=== PATIENT | male | born 1950 | race Caucasian/White ===

== ENCOUNTER 2020-09-29 07:51 | Outpatient (REF) | payer MEDICARE, MEDICAID, SELFPAY ==
[2020-09-29 11:24] LABS: MANUAL DIFF FLAG NO
[2020-09-29 11:32] LABS: Basophils Absolute Auto 0.1 X10*3/uL (0.0-0.2); Eosinophils Absolute Auto 0.1 X10*3/uL (0.0-0.4); Eosinophils Percent Auto 2.1 % (0-4); Hematocrit 42.5 % (42-52); Hemoglobin 14.3 g/dl (14.0-18.0); Imm Gran Abs Auto 0.01 X10*3/uL (0.00-0.03); Imm Gran Pct Auto 0.2 % (0.0-0.4); Lymphocytes Absolute Auto 1.2 X10*3/uL (1.2-4.9); Lymphocytes Percent Auto 23.1 % (20-40); Mean Corpuscular HGB Conc 33.6 g/dl (31.0-36.0); Mean Corpuscular Hemoglobin 31.4 pg (27.0-33.0); Mean Corpuscular Volume 93.2 fL (80-98); Mean Platelet Volume 10.3 fL (9.4-12.4); Monocytes Absolute Auto 0.4 X10*3/uL (0.1-1.2); Monocytes Percent Auto 7.7 % (2-11); Neutrophils Absolute Auto 3.4 X10*3/uL (2.0-8.3); Neutrophils Percent Auto 65.9 % (45-73); Platelet Count 226 X10*3/uL (160-400); Red Blood Count 4.56 X10*6/uL (4.60-5.80); Red Cell Distribution Width 12.5 % (11.0-16.0); White Blood Count 5.2 X10*3/uL (4.8-10.8)
[2020-09-29 11:50] LABS: Alanine Aminotransferase 22 U/L (0-40); Albumin Level 4.1 g/dL (3.5-5.0); Alkaline Phosphatase 40 U/L (39-117); Anion Gap 15 (12-20); Aspartate Amino Transferase 26 U/L (5-37); Bilirubin Total 0.7 mg/dL (0.0-1.0); Blood Urea Nitrogen 16 mg/dL (9-16); Calcium 9.2 mg/dL (8.4-10.2); Carbon Dioxide 24 mmol/L (22-29); Chloride 105 mmol/L (96-108); Cholesterol 143 mg/dL; Estimated Glomerular Filt Rate 59; Glucose Fasting 92 mg/dL (60-99); HDL Cholesterol 40 mg/dL; LDL Cholesterol Calculated 87 mg/dl; Potassium 3.8 mmol/l (3.3-5.1); Sodium 140 mmol/L (135-145); Total Protein 7.1 g/dL (6.5-8.0); Triglycerides 84 mg/dL
[2020-09-29 11:57] LABS: Free T4 (Free Thyroxine) 1.27 ng/dL (0.71-1.85); PSA,Total (Free>4and<10) 0.63 ng/mL (0.00-4.00); Thyroid Stimulating Hormone 0.44 uIU/mL (0.32-4.0); Vitamin D 25-OH Total 41.5 ng/mL (>30)
== END 2020-09-29 07:52 | disposition home or self-care (01) ==
LOC: HO.HMGCLDS 07:51
PROVIDERS: PCP Internal Medicine; Visit Provider Internal Medicine
DX: E03.9 Hypothyroidism, unspecified (principal); E55.9 Vitamin D deficiency, unspecified; F42.9 Obsessive-compulsive disorder, unspecified; N40.0 Benign prostatic hyperplasia without lower urinary tract symptoms; K21.9 Gastro-esophageal reflux disease without esophagitis; F41.9 Anxiety disorder, unspecified; Q99.2 Fragile X chromosome; E78.00 Pure hypercholesterolemia, unspecified
CPT/HCPCS: 36415; 80053; 80061; 82306; 84153; 84439; 84443; 85025

== ENCOUNTER 2020-12-23 07:37 | Outpatient (REF) | payer MEDICARE, MEDICAID, SELFPAY ==
[2020-12-23 11:57] LABS: Alanine Aminotransferase 24 U/L (0-40); Anion Gap 11 (12-20); Aspartate Amino Transferase 25 U/L (5-37); Blood Urea Nitrogen 16 mg/dL (9-16); Calcium 9.1 mg/dL (8.4-10.2); Carbon Dioxide 28 mmol/L (22-29); Chloride 107 mmol/L (96-108); Cholesterol 143 mg/dL; Estimated Glomerular Filt Rate 57; Glucose Fasting 88 mg/dL (60-99); HDL Cholesterol 38 mg/dL; LDL Cholesterol Calculated 91 mg/dl; Potassium 4.1 mmol/L (3.3-5.1); Sodium 142 mmol/L (135-145); Triglycerides 73 mg/dL
[2020-12-23 12:25] LABS: Free T4 (Free Thyroxine) 1.03 ng/dL (0.71-1.85); Thyroid Stimulating Hormone 0.41 uIU/mL (0.32-4.0); Vitamin D 25-OH Total 44.2 ng/mL (>30)
[2020-12-24 08:51] LABS: Varicella IgG Antibody >4000.00 index
[2020-12-25 21:52] LABS: TS Negative Control Passed; TS Panel A 0; TS Panel B 0; TS Positive Control Passed; TSpotTB Negative (SeeBelow)
== END 2020-12-23 07:38 | disposition home or self-care (01) ==
LOC: HO.HMGCLDS 07:37
PROVIDERS: PCP Internal Medicine; Visit Provider Internal Medicine
DX: Z00.01 Encounter for general adult medical examination with abnormal findings (principal); Z11.1 Encounter for screening for respiratory tuberculosis; Z01.84 Encounter for antibody response examination; E78.00 Pure hypercholesterolemia, unspecified; E03.9 Hypothyroidism, unspecified; E55.9 Vitamin D deficiency, unspecified; I10 Essential (primary) hypertension
CPT/HCPCS: 36415; 80048; 80061; 82306; 84439; 84443; 84450; 84460; 86481; 86787

== ENCOUNTER 2020-12-31 10:39 | Outpatient (REF) | payer MEDICARE, MEDICAID, SELFPAY | END 2020-12-31 10:40 | disposition home or self-care (01) | LOC: HO.MAMMO 10:39 | PROVIDERS: Visit Provider Internal Medicine | DX: Z13.89 Encounter for screening for other disorder (principal) ==

== ENCOUNTER 2021-02-17 08:43 | Outpatient (REF) | payer MEDICARE, MEDICAID, SELFPAY ==
[2021-02-17 08:50] LABS: FIT Int Ctl YES; FIT1 NEGATIVE (NEGATIVE); FIT2 NEGATIVE (NEGATIVE)
== END 2021-02-17 08:44 | disposition home or self-care (01) ==
LOC: HO.LNP 08:43
PROVIDERS: Visit Provider Internal Medicine
DX: Z12.11 Encounter for screening for malignant neoplasm of colon (principal); Z12.12 Encounter for screening for malignant neoplasm of rectum
CPT/HCPCS: 82274

== ENCOUNTER 2021-05-11 23:06 | Emergency (ER) | payer MEDICARE, MEDICAID, SELFPAY ==
[2021-05-12 00:14] VITALS: BP 143/57; PULSE 74; RESP 16; TEMP 36.6; O2SAT 97
--- NOTE | 2021-05-12 02:43 | ED.EAR ---
HPI - Ear Problem General Chief complaint: Ear Problems Stated complaint: Neuro symptoms Time Seen by Provider: 05/12/21 02:43 Source: patient and other Mode of arrival: ambulatory History of Present Illness HPI Narrative: 70-year-old male with left ear cerumen impaction and otherwise nonfocal. Related Data Home Medications Medication Instructions Recorded Confirmed flu vacc [id number](65yr up)-PF 240 ml IM 09/28/20 12/18/20 mcg/0.7 mL intramuscular syringe fluoxetine 20 mg capsule 20 mg PO DAILY 09/28/20 12/18/20 lorazepam 0.5 mg tablet 0.5 mg PO BID PRN 09/28/20 12/18/20 Previous Rx's Medication Instructions Recorded nystatin 100,000 unit/gram topical 1 appl TOPICAL DAILY PRN #30 g 10/26/20 powder calcium carbonate-vitamin D3 600 1 tab PO .QD #30 tab 10/27/20 mg(1,500 mg)-400 unit chewable tablet colloidal oatmeal 1 % topical cream See Rx Instructions TOPICAL 11/19/20 .COMPLEX #207 g acetaminophen 650 mg 650 mg PO Q8H PRN #60 tab 12/18/20 tablet,extended release dextromethorphan-guaifenesin 10 10 ml PO Q4-6H PRN #473 ml 12/25/20 mg-100 mg/5 mL oral syrup Aveeno Eczema Therapy See Rx Instructions .ROUTE .Twice 01/05/21 a day #206 g finasteride 5 mg tablet 5 mg PO DAILY #30 tab 03/10/21 levothyroxine 137 mcg tablet 137 mcg PO DAILY 30 Days #30 tab 03/10/21 omeprazole 20 mg capsule,delayed 20 mg PO BEDTIME #28 cap 03/10/21 release cholecalciferol (vitamin D3) 50 50 mcg PO DAILY #30 cap 04/02/21 mcg (2,000 unit) capsule fenofibrate nanocrystallized 145 145 mg PO DAILY #30 tab 04/02/21 mg tablet multivitamin 1 tab PO DAILY #30 tab 04/02/21 pediatric multivitamin no.17 1 tab PO .qd 90 Days #90 tab 04/07/21 calcium carbonate 500 mg(1,250 1 tab PO DAILY #28 tab 05/05/21 mg)-vitamin D3 400 unit chewable tablet Allergies Allergy/AdvReac Type Severity Reaction Status Date / Time No Known Allergies Allergy Verified 12/18/20 11:56 [facility] Past Medical History Medical History (Updated 05/12/21 @ 02:45 by Lydia Delarosa MD) Acquired hypothyroidism Anxiety Benign prostatic hyperplasia Fragile X syndrome GERD (gastroesophageal reflux disease) Hypercholesterolemia OCD (obsessive compulsive disorder) Vitamin D deficiency Surgical History (Updated 12/18/20 @ 11:59 by Adeline Farrar MD) No history of previous surgery Family History Family History (Updated 09/28/20 @ 10:50 by Adeline Farrar MD) Other Unknown family medical history Social History Social History (Updated 09/28/20 @ 10:21 by Sharifa Car CMA) Alcohol intake: never Physical Exam Vital Signs: Vital Signs: Last Vital Signs Temp 97.8 F 05/12/21 00:14 Pulse 74 05/12/21 00:14 Resp 16 05/12/21 00:14 BP 143/57 H 05/12/21 00:14 Pulse Ox 97 05/12/21 00:14 Body Mass Index 0.0 Discharge Plan Discharge Clinical Impression: Cerumen impaction Patient Disposition: Home, Self-Care Additional Instructions: 1. Patient may resume all home medications as prescribed. 2. Please follow-up with patient's primary care physician for removal of the remaining left ear wax. Return to the ER for acute worsening of symptoms. Prescriptions: No Action nystatin 100,000 unit/gram powder 1 appl topical DAILY PRN (Reason: rash) Qty: 30 RF: 2 calcium carbonate-vitamin D3 600 mg(1,500mg) -400 unit tablet,chewable 1 tab PO .QD Qty: 30 RF: 5 Aveeno Moisturizing 1 % cream See Rx Instructions topical .COMPLEX Qty: 207 RF: 4 dextromethorphan-guaifenesin [Siltussin-DM] 10-100 mg/5 mL syrup 10 ml PO Q4-6H PRN (Reason: for cough) Qty: 473 RF: 0 Aveeno Eczema Therapy cream See Rx Instructions .ROUTE .Twice a day Qty: 206 RF: 5 omeprazole 20 mg capsule,delayed release(DR/EC) 20 mg PO BEDTIME Qty: 28 RF: 2 finasteride 5 mg tablet 5 mg PO DAILY Qty: 30 RF: 4 levothyroxine 137 mcg tablet 137 mcg PO DAILY 30 Days Qty: 30 RF: 5 cholecalciferol (vitamin D3) 50 mcg (2,000 unit) capsule 50 mcg PO DAILY Qty: 30 RF: 3 fenofibrate nanocrystallized 145 mg tablet 145 mg PO DAILY Qty: 30 RF: 5 multivitamin Tablet 1 tab PO DAILY Qty: 30 RF: 5 Children's Chew Multivitamin Tablet,Chewable 1 tab PO .qd 90 Days Qty: 90 RF: 5 calcium carbonate-vitamin D3 500 mg(1,250mg) -400 unit tablet,chewable 1 tab PO DAILY Qty: 28 RF: 3 acetaminophen [Tylenol 8 Hour] 650 mg tablet extended release 650 mg PO Q8H PRN (Reason: fever or pain) Qty: 60 RF: 1 fluoxetine 20 mg capsule 20 mg PO DAILY RF: 0 Fluzone HighDose Quad 20-21 PF 240 mcg/0.7 mL syringe IM RF: 0 lorazepam 0.5 mg tablet 0.5 mg PO BID PRNRF: 0 Referrals: Adeline Farrar MD [Primary Care Provider] - 2 days
== END 2021-05-12 03:19 | disposition home or self-care (01) ==
LOC: HO.ED 05-12 02:51
PROVIDERS: Emergency Provider Student in an Organized Health Care Education/Training Program; PCP Internal Medicine
DX: H61.22 Impacted cerumen, left ear (principal)
CPT/HCPCS: 69210; 99283

== ENCOUNTER 2022-01-06 08:43 | Outpatient (REF) | payer MEDICARE, MEDICAID, SELFPAY ==
[2022-01-06 11:16] LABS: MANUAL DIFF FLAG NO
[2022-01-06 11:27] LABS: Basophils Percent Auto 0.8 % (0-2); Eosinophils Absolute Auto 0.1 X10*3/uL (0.0-0.4); Eosinophils Percent Auto 2.1 % (0-4); Hematocrit 39.5 % (42.0-52.0); Hemoglobin 13.3 g/dl (14.0-18.0); Imm Gran Abs Auto 0.01 X10*3/uL (0.00-0.03); Imm Gran Pct Auto 0.2 % (0.0-0.4); Lymphocytes Absolute Auto 0.9 X10*3/uL (1.2-4.9); Lymphocytes Percent Auto 17.9 % (20-40); Mean Corpuscular HGB Conc 33.7 g/dl (31.0-36.0); Mean Corpuscular Hemoglobin 30.9 pg (27.0-33.0); Mean Corpuscular Volume 91.9 fL (80.0-98.0); Mean Platelet Volume 10.1 fL (9.4-12.4); Monocytes Absolute Auto 0.3 X10*3/uL (0.1-1.2); Monocytes Percent Auto 6.4 % (2-11); Neutrophils Absolute Auto 3.8 x10*3/uL (2.0-8.3); Neutrophils Percent Auto 72.6 % (45-73); Platelet Count 215 X10*3/uL (160-400); White Blood Count 5.2 X10*3/uL (4.8-10.8)
[2022-01-06 11:43] LABS: Alanine Aminotransferase 23 U/L (0-40); Anion Gap 12 (12-20); Aspartate Amino Transferase 25 U/L (5-37); Blood Urea Nitrogen 14 mg/dL (9-16); Calcium 9.3 mg/dL (8.4-10.2); Carbon Dioxide 25 mmol/L (22-29); Chloride 109 mmol/L (96-108); Cholesterol 140 mg/dL; Estimated Glomerular Filt Rate > 60; Glucose Fasting 96 mg/dL (60-99); HDL Cholesterol 36 mg/dL; LDL Cholesterol Calculated 90 mg/dl; Potassium 4.2 mmol/L (3.3-5.1); Sodium 142 mmol/L (135-145); Triglycerides 72 mg/dL
[2022-01-06 12:09] LABS: Free T4 (Free Thyroxine) 1.28 ng/dL (0.71-1.85); Thyroid Stimulating Hormone 0.24 uIU/mL (0.32-4.0)
[2022-01-06 12:30] LABS: Folate > 20.0 ng/mL (> or = 4.0); Vitamin B12 446 pg/mL (200-900)
== END 2022-01-06 08:44 | disposition home or self-care (01) ==
LOC: HO.HMGCLDS 08:43
PROVIDERS: PCP Internal Medicine; Visit Provider Internal Medicine
DX: Z00.00 Encounter for general adult medical examination without abnormal findings (principal); E03.9 Hypothyroidism, unspecified; E78.00 Pure hypercholesterolemia, unspecified; E55.9 Vitamin D deficiency, unspecified; K21.9 Gastro-esophageal reflux disease without esophagitis; N40.0 Benign prostatic hyperplasia without lower urinary tract symptoms; I10 Essential (primary) hypertension
CPT/HCPCS: 36415; 80048; 80061; 82306; 82607; 82746; 84439; 84443; 84450; 84460; 85025

== ENCOUNTER 2022-02-25 13:33 | Outpatient (REF) | payer MEDICARE, MEDICAID, SELFPAY ==
[2022-02-26 08:01] LABS: FIT Int Ctl YES; FIT1 NEGATIVE (NEGATIVE); FIT2 NEGATIVE (NEGATIVE)
== END 2022-02-25 13:34 | disposition home or self-care (01) ==
LOC: HO.HMGCLNP 13:33
PROVIDERS: Visit Provider Internal Medicine
DX: E55.9 Vitamin D deficiency, unspecified (principal); Q99.2 Fragile X chromosome
CPT/HCPCS: 82274

== ENCOUNTER 2022-12-27 14:11 | Outpatient (REF) | payer MEDICARE, MEDICAID, SELFPAY ==
[2022-12-27 16:30] LABS: MANUAL DIFF FLAG NO
[2022-12-27 16:33] LABS: Basophils Absolute Auto 0.1 X10*3/uL (0.0-0.2); Basophils Percent Auto 1.1 % (0-2); Eosinophils Absolute Auto 0.3 X10*3/uL (0.0-0.4); Eosinophils Percent Auto 4.5 % (0-4); Hematocrit 39.5 % (42.0-52.0); Hemoglobin 13.2 g/dl (14.0-18.0); Imm Gran Abs Auto 0.01 X10*3/uL (0.00-0.03); Imm Gran Pct Auto 0.2 % (0.0-0.4); Lymphocytes Absolute Auto 1.5 X10*3/uL (1.2-4.9); Lymphocytes Percent Auto 26.6 % (20-40); Mean Corpuscular HGB Conc 33.4 g/dl (31.0-36.0); Mean Corpuscular Hemoglobin 30.8 pg (27.0-33.0); Mean Corpuscular Volume 92.3 fL (80.0-98.0); Mean Platelet Volume 10.5 fL (9.4-12.4); Monocytes Absolute Auto 0.5 X10*3/uL (0.1-1.2); Monocytes Percent Auto 9.3 % (2-11); Neutrophils Absolute Auto 3.3 x10*3/uL (2.0-8.3); Neutrophils Percent Auto 58.3 % (45-73); Platelet Count 225 X10*3/uL (160-400); Red Blood Count 4.28 X10*6/uL (4.60-5.80); Red Cell Distribution Width 13.1 % (11.0-16.0); White Blood Count 5.6 X10*3/uL (4.8-10.8)
[2022-12-27 17:33] LABS: Alanine Aminotransferase 17 U/L (0-40); Aspartate Amino Transferase 22 U/L (5-37)
[2022-12-27 17:50] LABS: Free T4 (Free Thyroxine) 1.09 ng/dL (0.71-1.85); Thyroid Stimulating Hormone 0.33 uIU/mL (0.32-4.0)
== END 2022-12-27 14:12 | disposition home or self-care (01) ==
LOC: HO.HMGCLDS 14:11
PROVIDERS: PCP Internal Medicine; Visit Provider Internal Medicine
DX: E03.9 Hypothyroidism, unspecified (principal); E55.9 Vitamin D deficiency, unspecified; K21.9 Gastro-esophageal reflux disease without esophagitis; E78.00 Pure hypercholesterolemia, unspecified
CPT/HCPCS: 36415; 84439; 84443; 84450; 84460; 85025

== ENCOUNTER 2022-12-28 06:14 | Outpatient (REF) | payer MEDICARE, MEDICAID, SELFPAY ==
[2022-12-28 11:56] LABS: Anion Gap 8 (12-20); Blood Urea Nitrogen 13 mg/dL (9-16); Carbon Dioxide 30 mmol/L (22-29); Chloride 109 mmol/L (96-108); Cholesterol 156 mg/dL; Estimated Glomerular Filt Rate > 60; Glucose Fasting 95 mg/dL (60-99); HDL Cholesterol 41 mg/dL; LDL Cholesterol Calculated 102 mg/dl; Sodium 143 mmol/L (135-145); Triglycerides 67 mg/dL
== END 2022-12-28 06:15 | disposition home or self-care (01) ==
LOC: HO.HMGCLDS 06:14
PROVIDERS: PCP Internal Medicine; Visit Provider Internal Medicine
DX: E55.9 Vitamin D deficiency, unspecified (principal); E78.00 Pure hypercholesterolemia, unspecified; K21.9 Gastro-esophageal reflux disease without esophagitis; E03.9 Hypothyroidism, unspecified
CPT/HCPCS: 36415; 80048; 80061

== ENCOUNTER 2023-05-22 13:22 | Outpatient (AMB) | payer MEDICARE, MEDICAID, SELFPAY ==
[2023-05-22 13:32] VITALS: BP 136/64; PULSE 52; O2SAT 99; BMI 23.3
--- NOTE | 2023-05-22 13:32 | A.OFFPC_ITS ---
Vital Signs 05/22/23 13:32 Height 5 ft 6 in Weight 144 lb 8 oz BMI 23.3 BP 136/64 Blood Pressure Location Rt brachial Position Sitting Pulse 52 Pulse Source Pulse Oximeter Pulse Oximetry (%) 99 Oxygen Delivery Method Room Air Intake Visit Reasons: Ear cleaning remove wax Intake Note: Pt is here tofay for a bilateral ear lavage Allergies No Known Allergies Allergy (Verified 05/22/23 14:01) Medication List - Last Reconciled 05/22/23 by Adeline Farrar MD acetaminophen ER (Tylenol 8 Hour) 650 mg PO Q8H PRN calcium carbonate-vitamin D3 500 mg-10 mcg (400 unit) 1 tab PO DAILY cholecalciferol (vitamin D3) 50 mcg PO DAILY colloidal oatmeal 1% (Aveeno Moisturizing) Apply daily as directed topical 2 times a day; dextromethorphan-guaifenesin 10-100 mg/5 mL (Siltussin-DM) 10 mL PO Q6H PRN fenofibrate nanocrystallized 145 mg PO DAILY finasteride 5 mg PO DAILY fluoxetine 20 mg PO DAILY levothyroxine 137 mcg PO DAILY lorazepam 0.5 mg PO BID PRN nystatin 1 appl topical DAILY PRN omeprazole 20 mg PO BEDTIME pediatric multivitamin no.17 (Children's Chew Multivitamin tablet) 1 tab PO .qd 90 days psyllium husk (Reguloid (psyllium husk)) 0.4 grams PO QAM Tobacco use date assessed: 05/22/23 Fall risk assessment: No Falls in past year Last assessed Fall Risk: 05/22/23 Dental Screening Dental Screen Date: 05/22/23 Did you have a dental visit in the last 12 months?: Yes Did you have a dental problem in the last 6 months where you did not have access to dental care?: No Was dental information given to patient?: No HPI Ear cleaning remove wax HPI Details 72-year-old male, here today needing removal of bilateral impacted cerumen prior to getting hearing aids [facility] Medical History (Updated 05/22/23 @ 14:13 by Adeline Farrar MD) Acquired hypothyroidism Anemia Anxiety Benign prostatic hyperplasia Bilateral impacted cerumen Cerumen impaction Fragile X syndrome GERD (gastroesophageal reflux disease) Hearing difficulty of both ears Hypercholesterolemia OCD (obsessive compulsive disorder) Vitamin D deficiency Surgical History No history of previous surgery Family History Other Unknown family medical history Social History Housing: Other Housing Other:: retirement Alcohol intake: never Patient Tobacco Use Status: Never used Tobacco e-Cigarette/Vaping Use: Never Used Second Hand Smoke Exposure: No service: No Current occupational status: disabled Current occupational exposures/hazards: No Cognitive needs: No Hearing needs: No Vision needs: No Questionnaire Thrive Questionnaire Date Thrive assessed: 02/20/23 ANURAG-7 AMB Questionnaire ANURAG-7 Date ANURAG - 7 assessed: 02/20/23 Source: Developed by Drs. Dany Odom, Daly Perdue, Ernesto Hayden and colleagues, with an educational radha from [employer]. Review of Systems Const All systems reviewed & are unremarkable except as noted in HPI and below Physical exam (Primary Care) Vital Signs: Last Vital Signs Pulse 52 05/22/23 13:32 BP 136/64 05/22/23 13:32 Pulse Ox 99 05/22/23 13:32 Oxygen Delivery Method Room Air 05/22/23 13:32 BMI result Body Mass Index 23.3 Tobacco/Smoking Status: Tobacco use Status Tobacco use date assessed 05/22/23 05/22/23 13:38 Patient Tobacco Use Status Never used Tobacco 05/22/23 13:38 e-Cigarette/Vaping Use Never Used 05/22/23 13:38 Thrive Assessment: Date of Thrive Assessment Date Thrive assessed 02/20/23 05/22/23 13:38 HENMT Ears: external ears normal and Abnormal EAC present excessive cerumen bilateral Assessment and Plan Assessment & Plan (1) Bilateral impacted cerumen: Code(s): H61.23 - Impacted cerumen, bilateral Plan: Successful removal of cerumen through ear irrigation from right ear canal, but still with some partially cerumen impaction noted on left ear canal. Advised to instill 4 drops it Debrox drops daily for 4 days, and then go back to once weekly administration. If still having impacted cerumen, advised to follow-up with ENT, currently sees Dr. Hewitt Coding Level of Care Code Est Pt Level 3 (61190) Diagnoses Bilateral impacted cerumen H61.23
== END 2023-05-22 14:44 | disposition home or self-care (01) ==
PROVIDERS: PCP Internal Medicine; Visit Provider Internal Medicine
DX: H61.23 Impacted cerumen, bilateral (principal)
CPT/HCPCS: 99213

== ENCOUNTER 2023-07-31 13:46 | Outpatient (REF) | payer MEDICARE, MEDICAID, SELFPAY | END 2023-07-31 13:47 | disposition home or self-care (01) | LOC: HO.HMGCLDS 13:46 | PROVIDERS: PCP Internal Medicine; Visit Provider Internal Medicine | DX: E03.9 Hypothyroidism, unspecified (principal); E55.9 Vitamin D deficiency, unspecified; K21.9 Gastro-esophageal reflux disease without esophagitis; Q99.2 Fragile X chromosome; D64.9 Anemia, unspecified | CPT/HCPCS: 36415; 82306; 82607; 82746; 83540; 84439; 84443; 85025 ==

== ENCOUNTER 2023-07-31 14:03 | Outpatient (AMB) | payer MEDICARE, MEDICAID, SELFPAY ==
--- NOTE | 2023-07-31 16:06 | MHC.OFFWIV ---
Intake Vital Signs 07/31/23 16:12 Weight 146 lb BP 118/72 Blood Pressure Location Rt brachial Position Sitting Pulse 96 Pulse Source Pulse Oximeter Pulse Oximetry (%) 68 L Oxygen Delivery Method Room Air Intake Visit Reasons: EST/uti(lobby) Intake Note: Patient here for UTI that has been present for about 3-4 days. Patient Tobacco Use Status: Never used Tobacco Allergies No Known Allergies Allergy (Verified 05/22/23 14:01) Do you need a note to return to daycare/school/sports/work: No HPI EST/uti(lobby) HPI Details 72-year-old male presents to the office from a [facility]. He has mental health issues and the aide is giving history. The aide reports that he had foul colored urine and wanted a urinalysis to rule out urine tract infection. Patient can give no history. Eight does not recall of the patient is having increased symptoms of urination or increased frequency. [facility] Medical History (Updated 07/31/23 @ 16:21 by Tra Mayo MD) Bilateral impacted cerumen Anemia Hearing difficulty of both ears Cerumen impaction Vitamin D deficiency OCD (obsessive compulsive disorder) Anxiety Benign prostatic hyperplasia GERD (gastroesophageal reflux disease) Acquired hypothyroidism Fragile X syndrome Hypercholesterolemia Surgical History No history of previous surgery Family History Other Unknown family medical history Social History Housing: Other Housing Other:: usp Alcohol intake: never Patient Tobacco Use Status: Never used Tobacco e-Cigarette/Vaping Use: Never Used Second Hand Smoke Exposure: No service: No Current occupational status: disabled Current occupational exposures/hazards: No Cognitive needs: No Hearing needs: No Vision needs: No Physical Exam Vital Signs: Last Vital Signs Pulse 96 07/31/23 16:12 BP 118/72 07/31/23 16:12 Pulse Ox 68 L 07/31/23 16:12 Oxygen Delivery Method Room Air 07/31/23 16:12 General: Yes bladder normal to palpation and Yes no CVA tenderness Back/Spine/Pelvis Back: no CVA tenderness Results AMB Urinalysis, Automated UA Leukoctes 0 Elva/uL Last Edit by Valdo Orozco [facility] on 07/31/23 16:18 UA Nitrite Negative Last Edit by Valdo Orozco [facility] on 07/31/23 16:18 UA Urobilinogen 0.2 mg/dL Last Edit by JazzyTalita Orozco [facility] on 07/31/23 16:18 UA Protein 0 mg/dL Last Edit by Valdo Orozco [facility] on 07/31/23 16:18 UA pH 6.5 Last Edit by JazzyMacrina Orozco [facility] on 07/31/23 16:18 UA Blood 0 Hakan/uL Last Edit by JazzyTalita Orozco [facility] on 07/31/23 16:18 UA Specific Flanagan 1.015 Last Edit by Valdo Orozco [facility] on 07/31/23 16:18 UA Ketone Negative Last Edit by JazzyTalita Orozco [facility] on 07/31/23 16:18 UA Bilirubin 0 mg/dL Last Edit by JazzyTalita Orozco [facility] on 07/31/23 16:18 UA Glucose 0 mg/dL Last Edit by JazzyTalita Orozco, [facility] on 07/31/23 16:18 Results Reviewed Results Reviewed: Laboratory Last Values Urine pH (Auto) 6.5 07/31/23 16:17 Specific Flanagan (Auto) 1.015 07/31/23 16:17 Urine Protein (Auto) 0 mg/dL 07/31/23 16:17 Glucose (UA)(Auto) 0 mg/dL 07/31/23 16:17 Urine Ketones (Auto) Negative 07/31/23 16:17 Urine Blood (Auto) 0 Hakan/uL 07/31/23 16:17 Urine Nitrite (Auto) Negative 07/31/23 16:17 Urine Bilirubin (Auto) 0 mg/dL 07/31/23 16:17 Urine Urobilinogen (Auto) 0.2 mg/dL 07/31/23 16:17 Leukocyte Esterase (Auto) 0 Elva/uL 07/31/23 16:17 Assessment & Plan Assessment & Plan (1) Dysuria: Code(s): R30.0 - Dysuria Plan: Urinalysis reviewed. No evidence of infection. Orders: Orders AMB Urinalysis Automated Today Z13.9 - Encounter for screening, unspecified Coding Level of Care Code Est Pt Level 3 (87761) Diagnoses Dysuria R30.0
[2023-07-31 16:12] VITALS: BP 118/72; PULSE 96; O2SAT 68
== END 2023-07-31 16:25 | disposition home or self-care (01) ==
PROVIDERS: PCP Internal Medicine; Visit Provider Internal Medicine
DX: R30.0 Dysuria (principal)
CPT/HCPCS: 81003; 99213

== ENCOUNTER 2023-08-03 08:12 | Outpatient (AMB) | payer MEDICARE, MEDICAID, SELFPAY ==
--- NOTE | 2023-08-03 08:32 | MHC.OFFWIV ---
Intake Vital Signs 08/03/23 08:36 Weight 146 lb BP 110/70 Blood Pressure Location Lt brachial Position Sitting Pulse 80 Pulse Source Pulse Oximeter Pulse Oximetry (%) 96 Oxygen Delivery Method Room Air Intake Visit Reasons: EP ?Ear infection Intake Note: Patient here because he was at his day program and has been leaning down mainly on his right side and can not return until he gets checked out. 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 History of developmental delay. He goes to a day program and apparently the staff there noticed he is leaning his head to the right, so they were questioning an ear infection. warp worker present with patient at visit reports labs urine were sent week and results are all within normal limits. Patient denies any ear pain. Worker reports his mood and affect are at his baseline. [facility] Medical History Bilateral impacted cerumen Anemia Hearing difficulty of both ears Cerumen impaction Vitamin D deficiency OCD (obsessive compulsive disorder) Anxiety Benign prostatic hyperplasia GERD (gastroesophageal reflux disease) Acquired hypothyroidism Fragile X syndrome Hypercholesterolemia Surgical History No history of previous surgery Family History Other Unknown family medical history Social History Housing: Other Housing Other:: correction Alcohol intake: never Patient Tobacco Use Status: Never used Tobacco e-Cigarette/Vaping Use: Never Used Second Hand Smoke Exposure: No service: No Current occupational status: disabled Current occupational exposures/hazards: No Cognitive needs: No Hearing needs: No Vision needs: No Review of Systems Const All systems reviewed & are unremarkable except as noted in HPI and below ENT Reports Normal hearing present Neuro Reports Normal hearing present Physical Exam Vital Signs: Last Vital Signs Pulse 80 08/03/23 08:36 BP 110/70 08/03/23 08:36 Pulse Ox 96 08/03/23 08:36 Oxygen Delivery Method Room Air 08/03/23 08:36 Const General: cooperative, healthy appearing and no acute distress Limitations: behavioral limitations HEENT Head: Yes normal to inspection Ears: hearing grossly normal bilaterally, external ears normal and TM's normal bilaterally (Cerumen left ear) General nose exam: Normal external nose present and Normal nasal mucous membranes and turbinates present Face and sinus: Yes normal facial exam and Yes sinuses nontender Mouth: Normal oral and palatal mucosa present and moist mucous membranes Eyes Pupils: Equal, round and reactive pupils present Neck Neck: Yes no lymphadenopathy Resp Effort & Inspection: normal respiratory effort and able to speak in complete sentences Auscultation: clear to auscultation bilaterally Cardio Jugular venous distension: no JVD Palpation: normal PMI Rate: regular rate Rhythm: regular rhythm Skin General skin exam: no rashes or lesions noted Neuro General: gait normal and deep tendon reflexes 2+ bilaterally Cranial nerves: Yes Equal, round and reactive pupils present, Yes Normal accommodation reflex present, Yes Bilaterally intact EOM present, Yes Normal facial strength present, Yes Midline tongue present and Yes Normal hearing present Motor exam (neuro): 5/5 motor strength present throughout and Pronator motor function not present Extrem General: Yes capillary refill normal and Yes no clubbing, cyanosis or edema Psych Appearance: grossly normal Speech and movement: Normal speech and movement present Assessment & Plan Assessment & Plan (1) Excessive cerumen in left ear canal: Code(s): H61.22 - Impacted cerumen, left ear Plan: Advised [id number] Debrox drops, which dry chain worker visit with patient, Winter, reports they will purchase for him for use at correction. No impaction noted. No infection. I did not identify any neuro deficits on exam. NIH stroke scale 0. His mental status and mood/affect is at baseline per worker present. Labs/urine normal per patient's staff, which were done last week. If they identify any changes in patient again, they should send him to the ED. I indicated this on paperwork sent in from home. warp worker agrees to plan. Coding Level of Care Code Est Pt Level 3 (65016) Diagnoses Excessive cerumen in left ear canal H61.22
[2023-08-03 08:36] VITALS: BP 110/70; PULSE 80; O2SAT 96
== END 2023-08-03 09:02 | disposition home or self-care (01) ==
PROVIDERS: PCP Internal Medicine; Visit Provider Nurse Practitioner Family
DX: H61.22 Impacted cerumen, left ear (principal)
CPT/HCPCS: 99213

== ENCOUNTER 2024-02-23 09:14 | Outpatient (AMB) | payer MEDICARE, MEDICAID, SELFPAY ==
--- NOTE | 2024-02-23 09:24 | A.OFFPC_ITS ---
Vital Signs 02/23/24 09:54 Weight 147 lb BP 118/70 Blood Pressure Location Rt brachial Position Sitting Pulse 72 Pulse Source Pulse Oximeter Pulse Oximetry (%) 97 Oxygen Delivery Method Room Air Intake Visit Reasons: annual PE Intake Note: Patient here for physical exam. Allergies No Known Allergies Allergy (Verified 02/23/24 10:20) Medication List - Last Reconciled 02/23/24 by Adeline Farrar MD acetaminophen ER (Tylenol 8 Hour) 650 mg PO Q8H PRN calcium carbonate-vitamin D3 500 mg-10 mcg (400 unit) 1 tab PO DAILY cholecalciferol (vitamin D3) 50 mcg PO DAILY colloidal oatmeal 1% (Aveeno Moisturizing) Apply daily as directed topical 2 ti mes a day; dextromethorphan-guaifenesin 10-100 mg/5 mL (Siltussin-DM) 10 mL PO Q6H PRN fenofibrate nanocrystallized 145 mg PO DAILY finasteride 5 mg PO DAILY fluoxetine 20 mg PO DAILY levothyroxine 137 mcg PO DAILY lorazepam 0.5 mg PO BID PRN nystatin 1 appl topical DAILY PRN omeprazole 20 mg PO BEDTIME pediatric multivitamin no.17 (Children's Chew Multivitamin tablet) 1 tab PO .qd 90 days psyllium husk (Reguloid (psyllium husk)) 0.4 grams PO QAM Tobacco use date assessed: 05/22/23 Fall risk assessment: No Falls in past year Last assessed Fall Risk: 02/23/24 Dental Screening Dental Screen Date: 02/23/24 Did you have a dental visit in the last 12 months?: Yes Did you have a dental problem in the last 6 months where you did not have access to dental care?: No Was dental information given to patient?: Patient has dentist HPI annual PE HPI Details 73-year-old male with history of OCD, an xiety, benign prostatic hyperplasia, GERD, acquired hypothyroidism, fragile X syndrome, hypercholesterolemia, hearing difficulty in both ears, and arthritis, here today for his physical exam. He has no new complaints at present time. Has had hearing aids in the past but patient refusing to wear them. [facility] Medical History Arthritis Anemia Hearing difficulty of both ears Cerumen impaction Vitamin D deficiency OCD (obsessive compulsive disorder) Anxiety Benign prostatic hyperplasia GERD (gastroesophageal reflux disease) Acquired hypothyroidism Fragile X syndrome Hypercholesterolemia Surgical History No history of previous surgery Family History Other Unknown family medical history Social History Housing: Other Housing Other:: prison Alcohol intake: never Patient Tobacco Use Status: Never used Tobacco e-Cigarette/Vaping Use: Never Used Second Hand Smoke Exposure: No service: No Current occupational status: disabled Current occupational exposures/hazards: No Cognitive needs: No Hearing needs: No Vision needs: No Questionnaire PHQ-9 Over the last 2 weeks, how often have you been bothered by any of the following problems? Depression Screening Done: No 82045 - PHQ-9 Billing: Patient declined-do not bill (Unable to assess) Source: Developed by Drs. Dany Odom, Daly Perdue, Ernesto Hayden and colleagues, with an educational radha from [employer]. 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 (Lives in a prison) What is your living situation today?: I have a steady place to live Within the past 12 months, did the food you bought not last and you didn't have the money to get more?: Never true Within the past 12 months, did you worry whether your food would run out before you got money to buy more?: Never true Do you have trouble paying for medicines?: No Do you have trouble getting transportation to medical appointments?: No Do you have trouble paying your heating and electricity bill?: No Do you have trouble taking care of your child, family member or friend?: No Do you have trouble with day-to-day activities such as bathing, preparing meals, shopping, managing finances, etc.?: No Are you currently unemployed and looking for a job?: No Are you interested in more education?: No THRIVE Score: 0 AUDIT C Alcohol Use Questionnaire (AUDIT-C) 1. How often do you have a drink containing alcohol?: Never Total Score: 0 ANURAG-7 AMB Questionnaire ANURAG-7 Date ANURAG - 7 assessed: 02/20/23 Source: Developed by Drs. Dany Odom, Daly Perdue, Ernesto Hayden and colleagues, with an educational radha from [employer]. Review of Systems Const Details: Review of systems mostly obtained from his caregiver. Denies daytime sleepiness, Denies fever(s) and Denies headache(s) Eyes Details: Gets regular eye exam from [facility] ENT Denies ear discharge, Denies headache(s), Reports hearing loss, Denies lip swelling, Denies epistaxis, Denies nasal discharge and Denies disequilibrium Card Denies chest pain, Denies lightheadedness, Denies palpitations and Denies dyspnea Resp Denies cough, Denies dyspnea and Denies wheezing GI Denies abdominal pain, Denies melena, Denies hematochezia, Denies change in bowel habits and Denies heartburn Details: Goes for yearly checkup with Dr. Bowling Denies hematuria, Denies genital lesions and Denies penile discharge Musc Reports no additional complaints Skin/Breast Denies lesions and Denies rash Neuro Reports confusion (mental status changes), Denies headache(s) and Denies disequilibrium Psych Reports confusion (mental status changes) Endo Denies polydipsia, Denies polyuria and Denies palpitations Vince/Lymph Denies easy bleeding and Denies easy bruising Aller/Immun Denies lip swelling, Denies seasonal rhinorrhea and Denies wheezing Physical exam (Primary Care) Vital Signs: Last Vital Signs Pulse 72 02/23/24 09:54 BP 118/70 02/23/24 09:54 Pulse Ox 97 02/23/24 09:54 Oxygen Delivery Method Room Air 02/23/24 09:54 Tobacco/Smoking Status: Tobacco use Status Tobacco use date assessed 05/22/23 02/23/24 09:25 Patient Tobacco Use Status Never used Tobacco 02/23/24 09:25 e-Cigarette/Vaping Use Never Used 02/23/24 09:25 Thrive Assessment: Date of Thrive Assessment Date Thrive assessed 02/20/23 02/23/24 09:25 Advance Care Planning discussion: Exists, not on file Date of discussion: 02/23/24 Who was present: Patient and caregiver Forms completed: Health Care Proxy (Patient's caregiver states it is already done, will provide copy on next visit) Time spent: 1-15 minutes, not on file Actual minutes spent: 15 Const General: confusion (mental status changes) Orientation/consciousness: confusion (mental status changes) [facility] Head: Yes normocephalic and Yes atraumatic Ears: external ears normal Eyes General: appearance normal, both eyes and all related structures Neck Neck: Yes full ROM, Yes no lymphadenopathy and Yes supple Thyroid: Thyroid normal Chest Chest palpation & inspection: normal inspection of the chest Resp Auscultation: clear to auscultation bilaterally Cardio Other: S1-S2 present regular rate and rhythm GI Other: Normal bowel sounds, soft, nontender with no mass palpated Male General Exam: Yes normal external exam Skin General skin exam: no rashes or lesions noted Neuro General: confusion (mental status changes) Extrem General: Yes full ROM, Yes no joint enlargement, Yes no clubbing, cyanosis or edema, Yes no calf tenderness and Yes normal gait Psych Appearance: grossly normal and well kempt Speech and movement: Psychomotor agitation in speech present Affect: Irritable affect present Assessment and Plan Assessment & Plan (1) Annual visit for general adult medical examination with abnormal findings: Code(s): Z00.01 - Encounter for general adult medical examination with abnormal findings Plan: Will check appropriate labs. Recommended dental visit every 6 months and regular eye exams, at least every 2 years.. Currently followed by Urology for his benign prostatic hyperplasia reviewed immunization record, needs updated COVID vaccine booster. Due for colon cancer screening, ordered Cologuard testing . Requested copy of healthcare proxy and MOLST form to be scanned into chart (2) Hypercholesterolemia: Code(s): E78.00 - Pure hypercholesterolemia, unspecified Plan: Currently on fenofibrate 145 mg daily will check fasting lipid panel (3) Fragile X syndrome: Code(s): Q99.2 - Fragile X chromosome Plan: Followed by psychiatry (4) Acquired hypothyroidism: Code(s): E03.9 - Hypothyroidism, unspecified Plan: Ordered TSH with free T4, currently on levothyroxine 137 mcg daily (5) GERD (gastroesophageal reflux disease): Code(s): K21.9 - Gastro-esophageal reflux disease without esophagitis Plan: On omeprazole 20 mg at bedtime (6) Benign prostatic hyperplasia: Comment: Followed by Dr. Carolyn Grubbs yearly, last seen 07/2022 Code(s): N40.0 - Benign prostatic hyperplasia without lower urinary tract symptoms Plan: Currently followed by Urology, on finasteride 5 mg daily (7) OCD (obsessive compulsive disorder): Code(s): F42.9 - Obsessive-compulsive disorder, unspecified Plan: Currently followed by psychiatry (8) Vitamin D deficiency: Code(s): E55.9 - Vitamin D deficiency, unspecified Plan: Will check vitamin-D level (9) Anemia: Code(s): D64.9 - Anemia, unspecified Plan: Ordered CBC and iron profile (10) Hearing difficulty of both ears: Comment: Patient however broke his hearing aids Code(s): H91.93 - Unspecified hearing loss, bilateral Orders: Orders Complete Blood Count Auto Diff 02/23/24 D64.9 - Anemia, unspecified, E03.9 - Hypothyroidism, unspecified, E55.9 - Vitamin D deficiency, unspecified, E78.00 - Pure hypercholesterolemia, unspecified, F42.9 - Obsessive-compulsive disorder, unspecified, K21.9 - Gastro-esophageal reflux disease without esophagitis, Q99.2 - Fragile X chromosome, Z00.01 - Encounter for general adult medical examination with abnormal findings, Z12.11 - Encounter for screening for malignant neoplasm of colon, Z12.12 - Encounter for screening for malignant neoplasm of rectum Lipid Panel 02/23/24 D64.9 - Anemia, unspecified, E03.9 - Hypothyroidism, unspecified, E55.9 - Vitamin D deficiency, unspecified, E78.00 - Pure hypercholesterolemia, unspecified, F42.9 - Obsessive-compulsive disorder, unspecified, K21.9 - Gastro-esophageal reflux disease without esophagitis, Q99.2 - Fragile X chromosome, Z00.01 - Encounter for general adult medical examination with abnormal findings, Z12.11 - Encounter for screening for malignant neoplasm of colon, Z12.12 - Encounter for screening for malignant neoplasm of rectum Thyroid Stimulating Hormone 02/23/24 D64.9 - Anemia, unspecified, E03.9 - Hypothyroidism, unspecified, E55.9 - Vitamin D deficiency, unspecified, E78.00 - Pure hypercholesterolemia, unspecified, F42.9 - Obsessive-compulsive disorder, unspecified, K21.9 - Gastro-esophageal reflux disease without esophagitis, Q99.2 - Fragile X chromosome, Z00.01 - Encounter for general adult medical examination with abnormal findings, Z12.11 - Encounter for screening for malignant neoplasm of colon, Z12.12 - Encounter for screening for malignant neoplasm of rectum Free T4 (Free Thyroxine) 02/23/24 D64.9 - Anemia, unspecified, E03.9 - Hypothyroidism, unspecified, E55.9 - Vitamin D deficiency, unspecified, E78.00 - Pure hypercholesterolemia, unspecified, F42.9 - Obsessive-compulsive disorder, unspecified, K21.9 - Gastro-esophageal reflux disease without esophagitis, Q99.2 - Fragile X chromosome, Z00.01 - Encounter for general adult medical examination with abnormal findings, Z12.11 - Encounter for screening for malignant neoplasm of colon, Z12.12 - Encounter for screening for malignant neoplasm of rectum Basic Metabolic Panel Fasting 02/23/24 D64.9 - Anemia, unspecified, E03.9 - Hypothyroidism, unspecified, E55.9 - Vitamin D deficiency, unspecified, E78.00 - Pure hypercholesterolemia, unspecified, F42.9 - Obsessive-compulsive disorder, unspecified, K21.9 - Gastro-esophageal reflux disease without esophagitis, Q99.2 - Fragile X chromosome, Z00.01 - Encounter for general adult medical examination with abnormal findings, Z12.11 - Encounter for screening for malignant neoplasm of colon, Z12.12 - Encounter for screening for malignant neoplasm of rectum Vitamin D 25-OH Total 02/23/24 D64.9 - Anemia, unspecified, E03.9 - Hypothyroidism, unspecified, E55.9 - Vitamin D deficiency, unspecified, E78.00 - Pure hypercholesterolemia, unspecified, F42.9 - Obsessive-compulsive disorder, unspecified, K21.9 - Gastro-esophageal reflux disease without esophagitis, Q99.2 - Fragile X chromosome, Z00.01 - Encounter for general adult medical examination with abnormal findings, Z12.11 - Encounter for screening for malignant neoplasm of colon, Z12.12 - Encounter for screening for malignant neoplasm of rectum IRON PROFILE 02/23/24 D64.9 - Anemia, unspecified Referrals Cologuard Test Z12.11 - Encounter for screening for malignant neoplasm of colon, Z12.12 - Encounter for screening for malignant neoplasm of rectum Coding Level of Care Code Est Pt [facility] Care >65y([id number]) Diagnoses Annual visit for general adult medical examination with abnormal findings Z00.01 Hypercholesterolemia E78.00 Fragile X syndrome Q99.2 Acquired hypothyroidism E03.9 GERD (gastroesophageal reflux disease) K21.9 Benign prostatic hyperplasia N40.0 OCD (obsessive compulsive disorder) F42.9 Vitamin D deficiency E55.9 Anemia D64.9 Hearing difficulty of both ears H91.93 Additional Codes Vital Signs *Quality* - Advance Care Planning discussion: Exists, not on file ([id number]) Vital Signs *Quality* - Time spent: 1-15 minutes, not on file ([id number])
[2024-02-23 09:54] VITALS: BP 118/70; PULSE 72; O2SAT 97
== END 2024-02-23 10:38 | disposition home or self-care (01) ==
PROVIDERS: Visit Provider Internal Medicine
DX: Z00.00 Encounter for general adult medical examination without abnormal findings (principal); E78.00 Pure hypercholesterolemia, unspecified; Q99.2 Fragile X chromosome; E03.9 Hypothyroidism, unspecified; K21.9 Gastro-esophageal reflux disease without esophagitis; N40.0 Benign prostatic hyperplasia without lower urinary tract symptoms; F42.9 Obsessive-compulsive disorder, unspecified; E55.9 Vitamin D deficiency, unspecified; D64.9 Anemia, unspecified; H91.93 Unspecified hearing loss, bilateral
CPT/HCPCS: 1124F; 99397

== ENCOUNTER 2024-05-03 08:47 | Outpatient (AMB) | payer MEDICARE, MEDICAID, SELFPAY ==
[2024-05-03 08:49] VITALS: BP 110/70; PULSE 96; TEMP 36.6; O2SAT 97
--- NOTE | 2024-05-03 08:49 | MHC.OFFWIV ---
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 Report of reduced hearing and presence of wax in the left ear. Denies any pain, fever, or drainage from ear. [facility] Medical History Arthritis Anemia Hearing difficulty of both ears Cerumen impaction Vitamin D deficiency OCD (obsessive compulsive disorder) Anxiety Benign prostatic hyperplasia GERD (gastroesophageal reflux disease) Acquired hypothyroidism Fragile X syndrome Hypercholesterolemia Surgical History No history of previous surgery Family History Other Unknown family medical history Social History Housing: Other Housing Other:: [facility] Alcohol intake: never Patient Tobacco Use Status: Never used Tobacco e-Cigarette/Vaping Use: Never Used Second Hand Smoke Exposure: No service: No Current occupational status: disabled Current occupational exposures/hazards: No Cognitive needs: No Hearing needs: No Vision needs: No Review of Systems Const All systems reviewed & are unremarkable except as noted in HPI and below Physical Exam Const General: no acute distress Limitations: behavioral limitations (developmental delays) HEENT Head: Yes normal to inspection Ears: external ears normal, TM normal on the right, Abnormal EAC present cerumen impaction on the left and unable to visualize TM (cerumen impaction) on the left Neck Neck: Yes no lymphadenopathy Resp Effort & Inspection: normal respiratory effort Extrem General: Yes no clubbing, cyanosis or edema Psych Appearance: grossly normal Speech and movement: Clear speech present Affect: Irritable affect present Office Procedures Cerumen Removal From which ear canal was the cerumen removed: left Removal: irrigation and cerumen loop/spoon Notes: patient tolerated procedure well and no complications [id number] Irrigation/Lavage Assessment & Plan Assessment & Plan (1) Impacted cerumen of left ear: Code(s): H61.22 - Impacted cerumen, left ear Plan: Ear lavage done on left ear for impacted cerumen. Patient able to tolerate this for a short time, however became uncooperative after multiple attempts at irrigation. A large amount of cerumen was able to be removed. There remains a small amount of soft cerumen in canal at this time. I prescribed debrox drops and explained use to patient and his accompanying worker from his residential facility. He can return as needed for further ear irrigation. All parties agree to plan. Medications: New carbamide peroxide 6.5% (Debrox) 5 drps otic (ear) left DAILY 4 days 15 mL 0RF H61.22 - Impacted cerumen, left ear Coding Level of Care Code Est Pt Level 4 (16662) Diagnoses Impacted cerumen of left ear H61.22 CPT Codes Office Procedure - CPT: 71916-Beb Irrigation/Lavage ([id number])
== END 2024-05-03 09:11 | disposition home or self-care (01) ==
PROVIDERS: PCP Internal Medicine; Visit Provider Nurse Practitioner Family
DX: H61.22 Impacted cerumen, left ear (principal)
CPT/HCPCS: 69210; 99213

== ENCOUNTER 2024-06-12 19:13 | Emergency (ER) | payer MEDICARE, MEDICAID, SELFPAY ==
[2024-06-12 19:21] VITALS: BP 100/63; PULSE 66; RESP 18; TEMP 36.6; O2SAT 99; BMI 26.3
--- NOTE | 2024-06-12 19:23 | ECG_ITS ---
Test Reason : ARRHYTHMIA Blood Pressure : / mmHG Vent. Rate : 067 BPM Atrial Rate : 067 BPM P-R Int : 150 ms QRS Dur : 124 ms QT Int : 430 ms P-R-T Axes : 068 -61 033 degrees QTc Int : 454 ms Normal sinus rhythm Right bundle branch block Left anterior fascicular block Bifascicular block Abnormal ECG No previous ECGs available Referred By: Lv Alvarenga Electronically Signed By:JOSELITO MCCOY
--- NOTE | 2024-06-12 19:23 | ED.GENADULT ---
HPI - General Adult General Chief complaint: General Medical Stated complaint: increased lethargy + bradycardia today Time Seen by Provider: 06/13/24 02:26 Source: other (patients care worker) Mode of arrival: ambulatory Limitations: physical limitation History of Present Illness ED Provider: Dr. Muñoz HPI narrative: Patient is in a retirement, today he was seen being more lethargic and to have bradycardia. Patient had not complaints Onset (ago): hour(s) Related Data Home Medications ?Medication ?Instructions ?Recorded ?Confirmed fluoxetine 20 mg capsule 20 mg PO DAILY 09/28/20 02/17/22 lorazepam 0.5 mg tablet 0.5 mg PO BID PRN 09/28/20 02/17/22 risperidone 1 mg tablet mg PO 05/03/24 Previous Rx's ?Medication ?Instructions ?Recorded finasteride 5 mg tablet 5 mg PO DAILY #30 tabs 07/29/21 colloidal oatmeal 1 % topical See Rx Instructions topical BID 10/03/23 cream (Aveeno Moisturizing) #207 grams acetaminophen 650 mg 650 mg PO Q8H PRN pain or fever 11/08/23 tablet,extended release (Tylenol 8 over 100 degrees #60 tabs Hour) nystatin 100,000 unit/gram topical 1 appl topical DAILY PRN rash in 11/13/23 powder inguinal and /or axillary area #30 grams calcium carbonate 500 mg-vitamin 1 tab PO DAILY #90 tabs 01/12/24 D3 10 mcg (400 unit) chewable tablet fenofibrate nanocrystallized 145 145 mg PO DAILY #90 tabs 01/12/24 mg tablet pediatric multivitamin no.17 1 tab PO .qd 90 days #90 tabs 01/12/24 (Children's Chew Multivitamin tablet) cholecalciferol (vitamin D3) 50 50 mcg PO DAILY #90 caps 05/02/24 mcg (2,000 unit) capsule carbamide peroxide 6.5 % ear drops 5 drp otic (ear) left DAILY 4 days 05/03/24 (Debrox) #15 mL psyllium husk 0.4 gram capsule 0.4 g PO QAM #90 caps 05/29/24 (Reguloid (psyllium husk)) wheelchair #1 ea 05/30/24 levothyroxine 137 mcg tablet 137 mcg PO DAILY #90 tabs 08/14/24 omeprazole 20 mg capsule,delayed 20 mg PO BEDTIME #90 caps 06/05/24 release Allergies Allergy/AdvReac Type Severity Reaction Status Date / Time No Known Allergies Allergy Verified 06/12/24 19:28 Review of Systems Review of Systems: Yes all other systems are reviewed and are negative Neurologic: Denies Sensory deficit (Neuro) [facility] Past Medical History Medical History Gait instability Hypertrophic toenail Arthritis Anemia Hearing difficulty of both ears Cerumen impaction Vitamin D deficiency OCD (obsessive compulsive disorder) Anxiety Benign prostatic hyperplasia GERD (gastroesophageal reflux disease) Acquired hypothyroidism Fragile X syndrome Hypercholesterolemia Surgical History No history of previous surgery Family History Family History Other Unknown family medical history Social History Social History Housing: Other Housing Other:: retirement Alcohol intake: never Patient Tobacco Use Status: Never used Tobacco Smoked in Last 30 Days: No e-Cigarette/Vaping Use: Never Used Second Hand Smoke Exposure: No Use of substances other than those prescribed or required for medical reasons: No Advance Directives: No Advance Directives Information Provided: Yes Do you have a plan to hurt others: No Plan service: No Current occupational status: disabled Current occupational exposures/hazards: No Cognitive needs: No Hearing needs: No Vision needs: No Physical Exam ED Vital Signs: Vital Signs - 24 hr 06/12/24 19:21 06/13/24 03:01 Temperature 97.8 F 97.8 F Pulse Rate 66 56 Respiratory Rate 18 20 Blood Pressure 100/63 151/69 H Pulse Oximetry 99 99 Oxygen Delivery Method Room Air Room Air BMI result Body Mass Index 26.3 Const Other: thin frail male with MR, in no acute distress Orientation/consciousness: oriented to person HENGA Head: Yes normal to inspection Ears: external ears normal General nose exam: Normal external nose present Mouth: Normal oral and palatal mucosa present and oropharynx normal Throat: Yes posterior oropharynx normal Eyes General: appearance normal, both eyes and all related structures Neck Neck: Yes normal visual inspection Chest Chest palpation & inspection: normal inspection of the chest Resp Auscultation: clear to auscultation bilaterally Cardio Jugular venous distension: no JVD Rate: regular rate Rhythm: regular rhythm Heart sounds: S1 normal heart sound present and S2 normal heart sound present GI Inspection: Yes normal to inspection Palpation (GI): Soft to palpation, nontender and No hepatosplenomegaly present Auscultation: normal bowel sounds General: Yes no CVA tenderness Back/Spine/Pelvis Back: no CVA tenderness Skin General skin exam: no rashes or lesions noted Neuro General: oriented to person Cranial nerves: Yes CN's II-XII intact bilaterally Motor exam (neuro): 5/5 motor strength present throughout Sensory Exam: No Sensory deficit (Neuro) Extrem General: Yes normal to inspection Psych Appearance: grossly normal Course Course Course Narrative: RME, this is a rapid medical exam performed by Bob Alvarenga please refer to primary provider for complete H&P- 73 year old male with past medical history significant for all hours night cognitive impairment, hypothyroidism, hyperlipidemia, fragile X syndrome, anxiety, OCD presents for evaluation of increased lethargy. Per nursing staff, the patient is Klonopin was discontinued 3 weeks ago and since then he has had increased lethargy. Staff has felt both patient pale and ?bradycardic in the 50s. ? The patient has no complaints. Plan for generalized medical workup including labs, EKG, urinalysis Reevaluation(s) Reevaluation #1: patient observed no evidence of significant bradycardia, he is anemic. Will dc home for follow up Time: 03:21 Medical Decision Making Differential Diagnosis Differential Diagnoses: The differential diagnosis associated with the presentation includes (bradycardia, cardiac ischemia, medication overdose, anemia) Admission/Observation Consideration of admission/observation: Escalation of care including admission/observation considered (upon arrival patient was considered for admission) Lab Data 06/12/24 19:48 06/12/24 19:48 Labs: Lab Results 06/12/24 Range/Units 19:48 WBC 5.5 (4.8-10.8) X10*3/uL RBC 3.72 L (4.60-5.80) X10*6/uL Hgb 11.8 L (14.0-18.0) g/dl Hct 34.3 L (42.0-52.0) % MCV 92.2 (80.0-98.0) fL MCH 31.7 (27.0-33.0) pg MCHC 34.4 (31.0-36.0) g/dl RDW 12.9 (11.0-16.0) % Plt Count 181 (160-400) X10*3/uL MPV 9.8 (9.4-12.4) fL Immature Gran % (Auto) 0.2 (0.0-0.4) % Neut % (Auto) 63.6 (45-73) % Lymph % (Auto) 24.4 (20-40) % [place] % (Auto) 8.4 (2-11) % Eos % (Auto) 2.7 (0-4) % Baso % (Auto) 0.7 (0-2) % Lymph # (Auto) 1.3 (1.2-4.9) X10*3/uL [place] # (Auto) 0.5 (0.1-1.2) X10*3/uL Eos # (Auto) 0.2 (0.0-0.4) X10*3/uL Baso # (Auto) 0.0 (0.0-0.2) X10*3/uL Abs Immat Gran (auto) 0.01 (0.00-0.03) X10*3/uL Absolute Neuts (auto) 3.5 (2.0-8.3) x10*3/uL Absolute Nucleated RBC 0.000 (0.0-0.012) X10*3/uL Nucleated RBC % (auto) 0.0 (0.0-0.2) /100WBC PT 12.0 (11.1-13.3) SEC INR 1.0 (0.9-1.1) Sodium 140 (135-145) mmol/L Potassium 3.9 (3.3-5.1) mmol/L Chloride 108 (96-108) mmol/L Carbon Dioxide 27 (22-29) mmol/L Anion Gap 9 L (12-20) BUN 19 H (9-16) mg/dL Creatinine 1.29 (0.5-1.4) mg/dL Estim Creat Clear Calc 44.6 Estimated GFR 54 Random Glucose 100 (60-115) mg/dL Calcium 9.2 (8.4-10.2) mg/dL Total Bilirubin 0.3 (0.0-1.0) mg/dL AST 26 (5-37) U/L ALT 20 (0-40) U/L Alkaline Phosphatase 41 (39-117) U/L Troponin I High Sens < 2.7 (<3.5-35.0) ng/L Total Protein 6.4 L (6.5-8.0) g/dL Albumin 3.5 (3.5-5.0) g/dL Lipase 20 (8-78) U/L TSH 0.26 L (0.32-4.0) uIU/mL Influenza Type A (PCR) NEGATIVE (Negative) Influenza Type B (PCR) NEGATIVE (Negative) RSV RNA Qual (PCR) NEGATIVE (Negative) SARS-CoV-2 RNA (RT-PCR) NEGATIVE (Negative) Independent Interpretation I performed an independent interpretation of an: EKG (sinus 65, RBBB, no st or twave changes) Independent Historian Clinical information obtained from an independent historian. History obtained from or confirmed by: Other (caregiver) Chronic Conditions Patient?s care impacted by: Other (MR) Discharge Plan Discharge Clinical Impression: Asymptomatic bradycardia, Anemia Patient Disposition: Home, Self-Care Instructions: Bradycardia (ED), Anemia (ED) Prescriptions: No Action finasteride 5 mg tablet 5 mg PO DAILY Qty: 30 4RF Aveeno Moisturizing 1 % cream See Rx Instructions topical BID Qty: 207 4RF Rx Instructions: Apply daily as directed topical 2 times a day; acetaminophen [Tylenol 8 Hour] 650 mg tablet extended release 650 mg PO Q8H PRN (Reason: pain or fever over 100 degrees) Qty: 60 1RF nystatin 100,000 unit/gram powder 1 appl topical DAILY PRN (Reason: rash in inguinal and /or axillary area) Qty: 30 2RF fenofibrate nanocrystallized 145 mg tablet 145 mg PO DAILY Qty: 90 1RF calcium carbonate-vitamin D3 500 mg-10 mcg (400 unit) tablet,chewable 1 tab PO DAILY Qty: 90 1RF Children's Chew Multivitamin Tablet,Chewable 1 tab PO .qd 90 Days Qty: 90 5RF cholecalciferol (vitamin D3) 50 mcg (2,000 unit) capsule 50 mcg PO DAILY Qty: 90 0RF psyllium husk [Reguloid (psyllium husk)] 0.4 gram capsule 0.4 g PO QAM Qty: 90 0RF (DME) wheelchair See Rx Instructions .Route .MEDSUPPLY Qty: 1 0RF Rx Instructions: need with seatbelt , leg rest and foot rest levothyroxine 137 mcg tablet 137 mcg PO DAILY Qty: 90 0RF omeprazole 20 mg capsule,delayed release(DR/EC) 20 mg PO BEDTIME Qty: 90 0RF fluoxetine 20 mg capsule 20 mg PO DAILY lorazepam 0.5 mg tablet 0.5 mg PO BID PRN risperidone 1 mg tablet PO Debrox 6.5 % drops 5 drp otic (ear) left DAILY 4 Days Qty: 15 0RF Referrals: Adeline Farrar MD [Primary Care Provider] - 5 days Print Language: Urdu
[2024-06-12 19:55] LABS: MANUAL DIFF FLAG NO
[2024-06-12 19:57] LABS: Basophils Percent Auto 0.7 % (0-2); Eosinophils Absolute Auto 0.2 X10*3/uL (0.0-0.4); Eosinophils Percent Auto 2.7 % (0-4); Hematocrit 34.3 % (42.0-52.0); Hemoglobin 11.8 g/dl (14.0-18.0); Imm Gran Abs Auto 0.01 X10*3/uL (0.00-0.03); Imm Gran Pct Auto 0.2 % (0.0-0.4); Lymphocytes Absolute Auto 1.3 X10*3/uL (1.2-4.9); Lymphocytes Percent Auto 24.4 % (20-40); Mean Corpuscular HGB Conc 34.4 g/dl (31.0-36.0); Mean Corpuscular Hemoglobin 31.7 pg (27.0-33.0); Mean Corpuscular Volume 92.2 fL (80.0-98.0); Mean Platelet Volume 9.8 fL (9.4-12.4); Monocytes Absolute Auto 0.5 X10*3/uL (0.1-1.2); Monocytes Percent Auto 8.4 % (2-11); Neutrophils Absolute Auto 3.5 x10*3/uL (2.0-8.3); Neutrophils Percent Auto 63.6 % (45-73); Platelet Count 181 X10*3/uL (160-400); Red Blood Count 3.72 X10*6/uL (4.60-5.80); Red Cell Distribution Width 12.9 % (11.0-16.0); White Blood Count 5.5 X10*3/uL (4.8-10.8)
[2024-06-12 20:14] LABS: Alanine Aminotransferase 20 U/L (0-40); Albumin Level 3.5 g/dL (3.5-5.0); Alkaline Phosphatase 41 U/L (39-117); Anion Gap 9 (12-20); Aspartate Amino Transferase 26 U/L (5-37); Bilirubin Total 0.3 mg/dL (0.0-1.0); Blood Urea Nitrogen 19 mg/dL (9-16); Calcium 9.2 mg/dL (8.4-10.2); Carbon Dioxide 27 mmol/L (22-29); Chloride 108 mmol/L (96-108); Creatinine Clr Calc Pharmacy 44.6; Estimated Glomerular Filt Rate 54; Glucose Random 100 mg/dL (60-115); Lipase 20 U/L (8-78); Potassium 3.9 mmol/L (3.3-5.1); Sodium 140 mmol/L (135-145); Total Protein 6.4 g/dL (6.5-8.0)
[2024-06-12 20:23] LABS: Troponin-I High Sensitivity < 2.7 ng/L (<3.5-35.0)
[2024-06-12 20:32] LABS: Influenza A PCR NEGATIVE (Negative); Influenza B PCR NEGATIVE (Negative); Resp Syncy Virus RNA Qual PCR NEGATIVE (Negative); SARS COV2 PCR INHOUSE NEGATIVE (Negative)
[2024-06-13 03:01] VITALS: BP 151/69; PULSE 56; RESP 20; TEMP 36.6; O2SAT 99
[2024-06-13 03:03] LABS: Thyroid Stimulating Hormone 0.26 uIU/mL (0.32-4.0)
[2024-06-13 03:32] VITALS: BP 151/69; PULSE 56; RESP 20; TEMP 36.6; O2SAT 99
== END 2024-06-13 03:31 | disposition home or self-care (01) ==
PROVIDERS: Physician Assistant; Emergency Provider Emergency Medicine; PCP Internal Medicine
DX: R00.1 Bradycardia, unspecified (principal); D64.9 Anemia, unspecified; R53.83 Other fatigue; Z03.818 Encounter for observation for suspected exposure to other biological agents ruled out; Z79.899 Other long term (current) drug therapy
CPT/HCPCS: 0241U; 36415; 80053; 83690; 84443; 84484; 85025; 85610; 93005; 99283; 99284

== ENCOUNTER 2024-07-09 10:26 | Outpatient (AMB) | payer MEDICARE, MEDICAID, SELFPAY ==
[2024-07-09 11:08] VITALS: BP 100/60; PULSE 62; O2SAT 98; BMI 22.9
--- NOTE | 2024-07-09 11:08 | MHC.PC.OV ---
Vital Signs 07/09/24 11:08 Height 5 ft 6 in Weight 142 lb BMI 22.9 BP 100/60 Blood Pressure Location Rt brachial Position Sitting Pulse 62 Pulse Source Pulse Oximeter Pulse Oximetry (%) 98 Oxygen Delivery Method Room Air Intake Visit Reasons: here for ffup Intake Note: Pt is here today for ffup Allergies No Known Allergies Allergy (Verified 07/14/24 21:16) Medication List - Last Reconciled 07/14/24 by Adeline Farrar MD acetaminophen ER (Tylenol 8 Hour) 650 mg PO Q8H PRN calcium carbonate-vitamin D3 500 mg-10 mcg (400 unit) 1 tab PO DAILY cholecalciferol (vitamin D3) 50 mcg PO DAILY colloidal oatmeal 1% (Aveeno Moisturizing) Apply daily as directed topical 2 times a day; dextromethorphan HBr (Tussin Cough (DM only)) 15 mg PO Q8H PRN fenofibrate nanocrystallized 145 mg PO DAILY finasteride 5 mg PO DAILY fluoxetine 20 mg PO DAILY levothyroxine 137 mcg PO DAILY lorazepam 0.5 mg PO BID PRN nystatin 1 appl topical DAILY PRN omeprazole 20 mg PO BEDTIME pediatric multivitamin no.17 (Children's Chew Multivitamin tablet) 1 tab PO .qd 90 days psyllium husk (Reguloid (psyllium husk)) 0.4 grams PO QAM risperidone mg PO [transport wheelchair need with seatbelt , leg rest and foot rest ] Tobacco use date assessed: 07/09/24 Fall risk assessment: No Falls in past year Last assessed Fall Risk: 07/09/24 Dental Screening Dental Screen Date: 07/09/24 Did you have a dental visit in the last 12 months?: Yes Did you have a dental problem in the last 6 months where you did not have access to dental care?: No Was dental information given to patient?: Patient has dentist HPI here for ffup HPI Details 73 year-old male with history of OCD, anemia, benign prostatic hyperplasia, GERD, acquired hypothyroidism, fragile X syndrome, hypercholesterolemia, and gait instability here for a follow up. Currently lives in a half-way, has no specific complaints at present time. [facility] Medical History (Updated 07/14/24 @ 21:26 by Adeline Farrar MD) Gait instability Hypertrophic toenail Arthritis Anemia Hearing difficulty of both ears Vitamin D deficiency OCD (obsessive compulsive disorder) Anxiety Benign prostatic hyperplasia GERD (gastroesophageal reflux disease) Acquired hypothyroidism Fragile X syndrome Hypercholesterolemia Surgical History No history of previous surgery Family History Other Unknown family medical history Social History Housing: Other Housing Other:: half-way Alcohol intake: never Patient Tobacco Use Status: Never used Tobacco e-Cigarette/Vaping Use: Never Used Second Hand Smoke Exposure: No service: No Current occupational status: disabled Current occupational exposures/hazards: No Cognitive needs: No Hearing needs: No Vision needs: No Questionnaire Thrive Questionnaire Date Thrive assessed: 02/23/24 AUDIT C Alcohol Use Questionnaire (AUDIT-C) 3. How often do you have six or more drinks on one occasion?: Never Total Score: 0 ANURAG-7 AMB Questionnaire ANURAG-7 Date ANURAG - 7 assessed: 02/20/23 Source: Developed by Drs. Dany Odom, Daly Perdue, Ernesto Hayden and colleagues, with an educational radha from [employer]. Review of Systems Const Details: Review of systems mostly obtained from his caregiver. Denies fever(s), Denies frequent falls and Denies headache(s) Eyes Details: Gets regular eye exam from [facility] Denies ear discharge, Denies headache(s), Reports hearing loss, Denies lip swelling, Denies epistaxis and Denies nasal discharge Card Denies chest pain, Denies lightheadedness, Denies palpitations and Denies dyspnea Resp Denies cough, Denies dyspnea and Denies wheezing GI Denies abdominal pain, Denies melena, Denies hematochezia, Denies change in bowel habits and Denies heartburn Details: Goes for yearly checkup with Dr. Bowling Denies hematuria and Denies genital lesions Musc Reports no additional complaints Skin/Breast Denies lesions and Denies rash Neuro Reports as per HPI, Denies frequent falls, Denies headache(s) and Denies focal weakness Endo Denies polydipsia, Denies polyuria and Denies palpitations Vince/Lymph Denies easy bleeding and Denies easy bruising Aller/Immun Denies lip swelling, Denies seasonal rhinorrhea and Denies wheezing Physical exam (Primary Care) Vital Signs: Last Vital Signs Pulse 62 07/09/24 11:08 BP 100/60 07/09/24 11:08 Pulse Ox 98 07/09/24 11:08 Oxygen Delivery Method Room Air 07/09/24 11:08 BMI result Body Mass Index 22.9 Tobacco/Smoking Status: Tobacco use Status Tobacco use date assessed 07/09/24 07/09/24 11:12 Patient Tobacco Use Status Never used Tobacco 07/09/24 11:12 e-Cigarette/Vaping Use Never Used 07/09/24 11:12 Thrive Assessment: Date of Thrive Assessment Date Thrive assessed 02/23/24 07/09/24 11:12 Const General: comfortable Nutritional Appearance: average body habitus Orientation/consciousness: oriented to person HENMT Head: Yes normocephalic and Yes atraumatic Ears: external ears normal Eyes General: appearance normal, both eyes and all related structures Neck Neck: Yes full ROM, Yes no lymphadenopathy and Yes supple Thyroid: Thyroid normal Chest Chest palpation & inspection: normal inspection of the chest Resp Auscultation: clear to auscultation bilaterally Cardio Other: S1-S2 present regular rate and rhythm GI Other: Normal bowel sounds, soft, nontender with no mass palpated Male General Exam: Yes normal external exam Skin General skin exam: no rashes or lesions noted Neuro General: oriented to person, moves all extremities and no focal motor deficits Extrem General: Yes full ROM, Yes no joint enlargement, Yes no clubbing, cyanosis or edema, Yes no calf tenderness and Yes normal gait Psych Appearance: grossly normal and well kempt Speech and movement: Psychomotor agitation in speech present Affect: Irritable affect present Results Reviewed Results Reviewed: Name: Raul Calderon Age/Sex: 73/M : 1950 Unit#: [id number] Attend Dr: Wilmer Muñoz MD Re06/13/24 [facility]: [facility] SPEC : [id number] JULIANA: 06/12/24 STATUS: COMP REQ : [id number] RECD: 06/12/[address]: Lv Alvarenga COMP: 06/12/24 ENTERED: 06/12/[address]: Adeline Farrar MD ORDERED: CBC Auto Diff Test Result Flag Reference WBC 5.5 4.8-10.8 X10*3/uL RBC 3.72 L 4.60-5.80 X10*6/uL HGB 11.8 L 14.0-18.0 g/dl HCT 34.3 L 42.0-52.0 % MCV 92.2 80.0-98.0 fL MCH 31.7 27.0-33.0 pg MCHC 34.4 31.0-36.0 g/dl RDW 12.9 11.0-16.0 % PLT 181 160-400 X10*3/uL MPV 9.8 9.4-12.4 fL Neut Pct Auto 63.6 45-73 % ImGran Pct Auto 0.2 0.0-0.4 % Lymp Pct Auto 24.4 20-40 % [place] Pct Auto 8.4 2-11 % Eos Pct Auto 2.7 0-4 % Baso Pct Auto 0.7 0-2 % NRBC Pct Auto 0.0 0.0-0.2 /100WBC ANC Neut Abs # 3.5 2.0-8.3 x10*3/uL ImGran Abs Auto 0.01 0.00-0.03 X10*3/uL Lymph Abs Auto 1.3 1.2-4.9 X10*3/uL [place] Abs Auto 0.5 0.1-1.2 X10*3/uL Eos Abs Auto 0.2 0.0-0.4 X10*3/uL Baso Abs Auto 0.0 0.0-0.2 X10*3/uL rajesh: Raul Calderon Age/Sex: 73/M : 1950 Unit#: [id number] Attend Dr: Wilmer Muñoz MD Re06/13/24 Status: DEP ER Location: [facility] Disch: SPEC : [id number] JULIANA: 06/12/24 STATUS: COMP REQ : [id number] RECD: 06/12/[address] [facility] [address]: Lv Alvarenga COMP: 06/13/24 ENTERED: 06/12/[address]: Adeline Farrar MD ORDERED: CMP, Lip, TSH Test Result Flag Reference Sodium 140 135-145 mmol/L Potassium 3.9 3.3-5.1 mmol/L Slight Hemolysis CL 108 96-108 mmol/L CO2 27 22-29 mmol/L Gap 9 L 12-20 BUN 19 H 9-16 mg/dL Creat 1.29 0.5-1.4 mg/dL Estimated CrCl 44.6 eGFR (calculated from the MDRD study equation) and eCrCl (calculated from the Cockcroft-Gault equation) are based on different parameters and may not yield comparable results. If eCrCl result is absurd, please check patient's height/weight. EGFR 54 NOTE: For -Filipino individuals, multiply the result by 1.210. Chronic Kidney Disease: Estimated GFR < 60 mL/min/1.73m2 Severe Kidney Disease: Estimated GFR < 15 mL/min/1.73m2 Glucose, Random 100 60-115 mg/dL CA 9.2 8.4-10.2 mg/dL Total Bili 0.3 0.0-1.0 mg/dL AST (GOT) 26 5-37 U/L Slight Hemolysis ALT (GPT) 20 0-40 U/L Protein, Total 6.4 L 6.5-8.0 g/dL Alb 3.5 3.5-5.0 g/dL Alk Phos 41 39-117 U/L Lipase 20 8-78 U/L TSH 3rd Gen. 0.26 L 0.32-4.0 uIU/mL Assessment and Plan Assessment & Plan (1) Hypercholesterolemia: Code(s): E78.00 - Pure hypercholesterolemia, unspecified Plan: Fasting lipid panel ordered, currently on fenofibrate 145 mg daily (2) Acquired hypothyroidism: Code(s): E03.9 - Hypothyroidism, unspecified Plan: Ordered TSH and free T4, currently on levothyroxine 137 mcg taken once a day (3) Vitamin D deficiency: Code(s): E55.9 - Vitamin D deficiency, unspecified Plan: Will check vitamin-D level (4) Arthritis: Code(s): M19.90 - Unspecified osteoarthritis, unspecified site Plan: Take Tylenol ER 650 mg 1 tablet every 8 hours as needed for joint pain (5) Gait instability: Code(s): R26.81 - Unsteadiness on feet Plan: Ordered vitamin B12, vitamin-D, CBC and iron profile, and thyroid levels as well as CBC Orders: Orders Vitamin D 25-OH Total 07/09/24 E03.9 - Hypothyroidism, unspecified, E55.9 - Vitamin D deficiency, unspecified, E78.00 - Pure hypercholesterolemia, unspecified, M19.90 - Unspecified osteoarthritis, unspecified site, R26.81 - Unsteadiness on feet IRON PROFILE 07/09/24 E03.9 - Hypothyroidism, unspecified, E55.9 - Vitamin D deficiency, unspecified, E78.00 - Pure hypercholesterolemia, unspecified, M19.90 - Unspecified osteoarthritis, unspecified site, R26.81 - Unsteadiness on feet Complete Blood Count Auto Diff 07/09/24 E03.9 - Hypothyroidism, unspecified, E55.9 - Vitamin D deficiency, unspecified, E78.00 - Pure hypercholesterolemia, unspecified, M19.90 - Unspecified osteoarthritis, unspecified site, R26.81 - Unsteadiness on feet Thyroid Stimulating Hormone 07/09/24 E03.9 - Hypothyroidism, unspecified, E55.9 - Vitamin D deficiency, unspecified, E78.00 - Pure hypercholesterolemia, unspecified, M19.90 - Unspecified osteoarthritis, unspecified site, R26.81 - Unsteadiness on feet Free T4 (Free Thyroxine) 07/09/24 E03.9 - Hypothyroidism, unspecified, E55.9 - Vitamin D deficiency, unspecified, E78.00 - Pure hypercholesterolemia, unspecified, M19.90 - Unspecified osteoarthritis, unspecified site, R26.81 - Unsteadiness on feet Lipid Panel 07/09/24 E03.9 - Hypothyroidism, unspecified, E55.9 - Vitamin D deficiency, unspecified, E78.00 - Pure hypercholesterolemia, unspecified, M19.90 - Unspecified osteoarthritis, unspecified site, R26.81 - Unsteadiness on feet Vitamin B12 and Folate 07/09/24 E03.9 - Hypothyroidism, unspecified, E55.9 - Vitamin D deficiency, unspecified, E78.00 - Pure hypercholesterolemia, unspecified, M19.90 - Unspecified osteoarthritis, unspecified site, R26.81 - Unsteadiness on feet Coding Level of Care Code Est Pt Level 4 (60930) Complex EM visit Add On G2211 Diagnoses Hypercholesterolemia E78.00 Acquired hypothyroidism E03.9 Vitamin D deficiency E55.9 Arthritis M19.90 Gait instability R26.81
== END 2024-07-09 12:08 | disposition home or self-care (01) ==
PROVIDERS: PCP Internal Medicine; Visit Provider Internal Medicine
DX: E78.00 Pure hypercholesterolemia, unspecified (principal); E03.9 Hypothyroidism, unspecified; E55.9 Vitamin D deficiency, unspecified; M19.90 Unspecified osteoarthritis, unspecified site; R26.81 Unsteadiness on feet

== ENCOUNTER → 2024-07-09 10:26 | Outpatient (BNVA) | payer MEDICARE, MEDICAID, SELFPAY | PROVIDERS: PCP Internal Medicine; Visit Provider Internal Medicine ==

== ENCOUNTER 2024-07-09 11:33 | Outpatient (REF) | payer MEDICARE, MEDICAID, SELFPAY ==
[2024-07-09 13:38] LABS: MANUAL DIFF FLAG NO
[2024-07-09 13:47] LABS: Basophils Absolute Auto 0.1 X10*3/uL (0.0-0.2); Basophils Percent Auto 0.9 % (0-2); Eosinophils Absolute Auto 0.1 X10*3/uL (0.0-0.4); Eosinophils Percent Auto 1.8 % (0-4); Hematocrit 36.7 % (42.0-52.0); Hemoglobin 12.4 g/dl (14.0-18.0); Imm Gran Abs Auto 0.01 X10*3/uL (0.00-0.03); Imm Gran Pct Auto 0.2 % (0.0-0.4); Lymphocytes Absolute Auto 0.9 X10*3/uL (1.2-4.9); Lymphocytes Percent Auto 15.9 % (20-40); Mean Corpuscular HGB Conc 33.8 g/dl (31.0-36.0); Mean Corpuscular Hemoglobin 31.2 pg (27.0-33.0); Mean Corpuscular Volume 92.2 fL (80.0-98.0); Mean Platelet Volume 10.2 fL (9.4-12.4); Monocytes Absolute Auto 0.4 X10*3/uL (0.1-1.2); Monocytes Percent Auto 6.7 % (2-11); Neutrophils Absolute Auto 4.2 x10*3/uL (2.0-8.3); Neutrophils Percent Auto 74.5 % (45-73); Platelet Count 216 X10*3/uL (160-400); Red Blood Count 3.98 X10*6/uL (4.60-5.80); Red Cell Distribution Width 12.9 % (11.0-16.0); White Blood Count 5.7 X10*3/uL (4.8-10.8)
[2024-07-09 14:38] LABS: Folate 15.3 ng/mL (> or = 4.0); Vitamin B12 488 pg/mL (200-900)
[2024-07-09 14:41] LABS: Free T4 (Free Thyroxine) 1.09 ng/dL (0.71-1.85); Thyroid Stimulating Hormone 0.24 uIU/mL (0.32-4.0); Vitamin D 25-OH Total 51.8 ng/mL (>30)
[2024-07-09 14:42] LABS: Cholesterol 124 mg/dL (<200); HDL Cholesterol 35 mg/dL (>40); Iron 92 mcg/dL (45-160); LDL Cholesterol Calculated 78 mg/dL (<100); Percent Iron Saturation 29 % (15-50); Total Iron Binding Capacity 320 mcg/dL (228-428); Triglycerides 59 mg/dL (<150); Unsaturated Iron Binding 228 ug/dL
== END 2024-07-09 11:34 | disposition home or self-care (01) ==
LOC: HO.HMGCLDS 11:33
PROVIDERS: PCP Internal Medicine; Visit Provider Internal Medicine
DX: E78.00 Pure hypercholesterolemia, unspecified (principal); R26.81 Unsteadiness on feet; N40.0 Benign prostatic hyperplasia without lower urinary tract symptoms; K21.9 Gastro-esophageal reflux disease without esophagitis; E03.9 Hypothyroidism, unspecified; E55.9 Vitamin D deficiency, unspecified; M19.90 Unspecified osteoarthritis, unspecified site
CPT/HCPCS: 36415; 80061; 82306; 82607; 82746; 83540; 84439; 84443; 85025; 99212

== ENCOUNTER 2024-10-09 10:21 | Outpatient (AMB) | payer MEDICARE, MEDICAID, SELFPAY ==
--- NOTE | 2024-10-09 10:22 | AM.OFFWIN_ITS ---
Intake Vital Signs 10/09/24 10:24 Height 5 ft 6 in Weight 142 lb BMI 22.9 BP 122/70 Blood Pressure Location Rt brachial Position Sitting Pulse 65 Pulse Source Pulse Oximeter Pulse Oximetry (%) 99 Oxygen Delivery Method Room Air Intake Visit Reasons: EP-swollen groin Intake Note: Patient here for big purple bumps in groin are that staff noticed yesterday while bathing him. Patient Tobacco Use Status: Never used Tobacco Allergies No Known Allergies Allergy (Verified 10/09/24 10:25) Do you need a note to return to daycare/school/sports/work: No HPI EP-swollen groin HPI Details This note is constructed using voice recognition software. While every effort has been made to ensure accuracy, superintendent sanitation errors may have been included. The patient is a 73 year old male who presents to the clinic today with ?purple bumps? in the groin. The patient is a participant a day program, as well as special needs assistance 24 hour care, when he was bathing yesterday, staff noticed discoloration to the scrotum in bumps, without any pain or discharge. He did not have been present the day before. There have been no changes in his bowel or bladder function, no pain, no fever. COUNTS INCLUDE 234 BEDS AT THE [facility] Medical History (Updated 07/14/24 @ 21:26 by Adeline Farrar MD) Gait instability Hypertrophic toenail Arthritis Anemia Hearing difficulty of both ears Vitamin D deficiency OCD (obsessive compulsive disorder) Anxiety Benign prostatic hyperplasia GERD (gastroesophageal reflux disease) Acquired hypothyroidism Fragile X syndrome Hypercholesterolemia Surgical History No history of previous surgery Family History Other Unknown family medical history Social History Housing: Other Housing Other:: half-way Alcohol intake: never Patient Tobacco Use Status: Never used Tobacco e-Cigarette/Vaping Use: Never Used Second Hand Smoke Exposure: No service: No Current occupational status: disabled Current occupational exposures/hazards: No Cognitive needs: No Hearing needs: No Vision needs: No Review of Systems Const All systems reviewed & are unremarkable except as noted in HPI and below Physical Exam Vital Signs: Last Vital Signs Pulse 65 10/09/24 10:24 BP 122/70 10/09/24 10:24 Pulse Ox 99 10/09/24 10:24 Oxygen Delivery Method Room Air 10/09/24 10:24 BMI result Body Mass Index 22.9 Const General: cooperative, healthy appearing, comfortable, no acute distress and well developed HEENT Head: Yes normal to inspection Ears: hearing grossly normal bilaterally General nose exam: Normal external nose present Face and sinus: Yes normal facial exam Eyes General: appearance normal, both eyes and all related structures Neck Neck: Yes normal visual inspection and Yes full ROM Resp Effort & Inspection: normal respiratory effort and able to speak in complete sentences Auscultation: clear to auscultation bilaterally Cardio Rate: regular rate Rhythm: regular rhythm Heart sounds: normal S1 and S2 Other: Petechiae covering entire scrotum, no erythema, warmth, discharge, pain. Cremasteric reflex in place. Assessment & Plan Assessment & Plan (1) Petechiae: Code(s): R23.3 - Spontaneous ecchymoses Plan: Likely secondary to low-level trauma, versus self-inflicted. Advised await and see approach. Advised ER with sudden pain or worsening. Advised follow up as needed with worsening or failure to resolve., advised staff that this is likely self-limiting. Plan See above for full details and plan. Coding Level of Care Code Est Pt Level 3 (93416) Diagnoses Petechiae R23.3
[2024-10-09 10:24] VITALS: BP 122/70; PULSE 65; O2SAT 99; BMI 22.9
== END 2024-10-09 11:06 | disposition home or self-care (01) ==
PROVIDERS: PCP Internal Medicine; Visit Provider Registered Nurse
DX: R23.3 Spontaneous ecchymoses (principal)

== ENCOUNTER → 2024-10-09 10:21 | Outpatient (BNVA) | payer MEDICARE, MEDICAID, SELFPAY | PROVIDERS: PCP Internal Medicine; Visit Provider Registered Nurse | DX: R23.3 Spontaneous ecchymoses (principal) | CPT/HCPCS: 99212 ==

== ENCOUNTER 2024-12-10 10:53 | Outpatient (AMB) | payer MEDICARE, MEDICAID, SELFPAY ==
--- NOTE | 2024-12-10 11:39 | MHC.PC.OV ---
Vital Signs 12/10/24 11:40 Height 5 ft 6 in Weight 155 lb BMI 25.0 BP 120/82 Blood Pressure Location Rt brachial Position Sitting Respiration 14 Pulse 66 Pulse Source Pulse Oximeter Pulse Oximetry (%) 96 Oxygen Delivery Method Room Air Intake Visit Reasons: Cut on his head Intake Note: Pt is here today took a fall monday evening hit his head Allergies No Known Allergies Allergy (Verified 12/10/24 11:43) Medication List - Last Reconciled 12/10/24 by Adeline Farrar MD acetaminophen ER (Tylenol 8 Hour) 650 mg PO Q8H PRN calcium carbonate-vitamin D3 500 mg-10 mcg (400 unit) 1 tab PO DAILY cholecalciferol (vitamin D3) 50 mcg PO DAILY colloidal oatmeal 1% (Aveeno Moisturizing) Apply small amount to chest and abdomen 2 times a day; fenofibrate nanocrystallized 145 mg PO DAILY finasteride 5 mg PO DAILY fluoxetine 20 mg PO DAILY levothyroxine 137 mcg PO DAILY lorazepam 0.5 mg PO BID PRN nystatin 1 appl topical DAILY PRN omeprazole 20 mg PO BEDTIME pediatric multivitamin no.17 (Children's Chew Multivitamin tablet) 1 tab PO .qd 90 days psyllium husk (Reguloid (psyllium husk)) 0.4 grams PO QAM risperidone mg PO [transport chair need with seatbelt , leg rests and foot rests ] Tobacco use date assessed: 12/10/24 Fall risk assessment: 1 Fall in past year Last assessed Fall Risk: 12/10/24 Dental Screening Dental Screen Date: 07/09/24 HPI Cut on his head HPI Details 74-year-old male with past medical history of CAD, fragile X syndrome, known gait instability, and anemia, here today after recent fall at home 12/06/24 . Patient accompanied by caregiver from whom most of the history is taken, who states that patient lost his balance and hit back of his head on a chair, no loss of consciousness reported. Patient was not seen at the ER or any walk-in clinic. As per caregiver, patient sustained a small abrasion on the back of head, which they already cleaned with soap and water and no further bleeding reported. There was no alteration in consciousness reported. Patient denies any headache, no change in vision. [facility] Medical History Gait instability Hypertrophic toenail Arthritis Anemia Hearing difficulty of both ears Vitamin D deficiency OCD (obsessive compulsive disorder) Anxiety Benign prostatic hyperplasia GERD (gastroesophageal reflux disease) Acquired hypothyroidism Fragile X syndrome Hypercholesterolemia Surgical History No history of previous surgery Family History Other Unknown family medical history Social History Housing: Other Housing Other:: long-term Alcohol intake: never Patient Tobacco Use Status: Never used Tobacco e-Cigarette/Vaping Use: Never Used Second Hand Smoke Exposure: No service: No Current occupational status: disabled Current occupational exposures/hazards: No Cognitive needs: No Hearing needs: No Vision needs: No Questionnaire Thrive Questionnaire Date Thrive assessed: 02/23/24 I am a: Patient What is your living situation today?: I have a steady place to live Within the past 12 months, did the food you bought not last and you didn't have the money to get more?: I choose not to answer this question Within the past 12 months, did you worry whether your food would run out before you got money to buy more?: I choose not to answer this question Do you have trouble paying for medicines?: I choose not to answer this question Do you have trouble getting transportation to medical appointments?: No Do you have trouble paying your heating and electricity bill?: No Do you have trouble taking care of your child, family member or friend?: No Do you have trouble with day-to-day activities such as bathing, preparing meals, shopping, managing finances, etc.?: No Are you currently unemployed and looking for a job?: I choose not to answer this question Are you interested in more education?: No Please select the resources that you would like help with: None Currently or been in a relationship where the following occur: No concerns reported THRIVE Score: 0 AUDIT C Alcohol Use Questionnaire (AUDIT-C) 1. How often do you have a drink containing alcohol?: Never Total Score: 0 ANURAG-7 AMB Questionnaire ANURAG-7 Date ANURAG - 7 assessed: 02/20/23 Feeling nervous, anxious, or on edge: 0 = Not at all Not being able to stop or control worryin = Not at all Worrying too much about different things: 0 = Not at all Trouble relaxin = Not at all Being so restless that it is hard to sit still: 0 = Not at all Becoming easily annoyed or irritable: 0 = Not at all Feeling afraid as if something awful might happen: 0 = Not at all Total ANURAG-7 score (0-4 normal; 5-9 mild; 10-14 moderate; 15-21 severe): 0 Source: Developed by Drs. Dany Odom, Daly Perdue, Ernesto Hayden and colleagues, with an educational radha from [employer]. Review of Systems Const Reports as per HPI ENT Reports no additional complaints Card Reports no additional complaints and Denies dyspnea Resp Denies cough and Denies dyspnea GI Reports no additional complaints Musc Reports no additional complaints Neuro Reports no additional complaints Vince/Lymph Denies easy bleeding Physical exam (Primary Care) Vital Signs: Last Vital Signs Pulse 66 12/10/24 11:40 Resp 14 12/10/24 11:40 BP 120/82 12/10/24 11:40 Pulse Ox 96 12/10/24 11:40 Oxygen Delivery Method Room Air 12/10/24 11:40 BMI result Body Mass Index 25.0 Tobacco/Smoking Status: Tobacco use Status Tobacco use date assessed 12/10/24 12/10/24 11:46 Patient Tobacco Use Status Never used Tobacco 12/10/24 11:46 e-Cigarette/Vaping Use Never Used 12/10/24 11:46 Thrive Assessment: Date of Thrive Assessment Date Thrive assessed 02/23/24 12/10/24 11:46 Currently or been in a relationship where the following occur: No concerns reported Const General: comfortable Orientation/consciousness: oriented to person HENMT Other: Healing abrasion noted on back of scalp, nontender to palpation Head: Yes normocephalic Neck Neck: Yes full ROM, Yes no lymphadenopathy and Yes supple Chest Chest palpation & inspection: normal inspection of the chest Resp Auscultation: clear to auscultation bilaterally Cardio Other: S1-S2 present regular rate and rhythm GI Other: Normal bowel sounds, soft, nontender with no mass palpated Male General Exam: Yes normal external exam Skin General skin exam: no rashes or lesions noted Neuro General: oriented to person, moves all extremities and no focal motor deficits Extrem General: Yes full ROM, Yes no joint enlargement, Yes no clubbing, cyanosis or edema and Yes no calf tenderness Coding Level of Care Code Est Pt Level 3 (17270) Diagnoses Gait instability R26.81 Anemia D64.9 Abrasion, scalp w/o infection S00.01XA Assessment & Plan Assessment & Plan (1) Gait instability: Code(s): R26.81 - Unsteadiness on feet Category: Medical (2) Anemia: Code(s): D64.9 - Anemia, unspecified Category: Medical (3) Abrasion, scalp w/o infection: Code(s): S00.01XA - Abrasion of scalp, initial encounter Plan Healing abrasion noted, no further treatment, fall precautions again discussed with patient's caregiver. He is scheduled for physical exam on 02/27/2025. Ordered a CBC, iron profile, liver enzymes, basic metabolic panel fasting lipid panel, PSA, thyroid levels vitamin-D level to be done prior to next appointment Orders: Orders Complete Blood Count Auto Diff 02/20/25 D64.9 - Anemia, unspecified, E03.9 - Hypothyroidism, unspecified, E55.9 - Vitamin D deficiency, unspecified, E78.00 - Pure hypercholesterolemia, unspecified, N40.0 - Benign prostatic hyperplasia without lower urinary tract symptoms, Q99.2 - Fragile X chromosome, Z13.1 - Encounter for screening for diabetes mellitus IRON PROFILE 02/20/25 D64.9 - Anemia, unspecified, E03.9 - Hypothyroidism, unspecified, E55.9 - Vitamin D deficiency, unspecified, E78.00 - Pure hypercholesterolemia, unspecified, N40.0 - Benign prostatic hyperplasia without lower urinary tract symptoms, Q99.2 - Fragile X chromosome, Z13.1 - Encounter for screening for diabetes mellitus Aspartate Amino Transferase 02/20/25 D64.9 - Anemia, unspecified, E03.9 - Hypothyroidism, unspecified, E55.9 - Vitamin D deficiency, unspecified, E78.00 - Pure hypercholesterolemia, unspecified, N40.0 - Benign prostatic hyperplasia without lower urinary tract symptoms, Q99.2 - Fragile X chromosome, Z13.1 - Encounter for screening for diabetes mellitus Basic Metabolic Panel Fasting 02/20/25 D64.9 - Anemia, unspecified, E03.9 - Hypothyroidism, unspecified, E55.9 - Vitamin D deficiency, unspecified, E78.00 - Pure hypercholesterolemia, unspecified, N40.0 - Benign prostatic hyperplasia without lower urinary tract symptoms, Q99.2 - Fragile X chromosome, Z13.1 - Encounter for screening for diabetes mellitus Alanine Aminotransferase 02/20/25 D64.9 - Anemia, unspecified, E03.9 - Hypothyroidism, unspecified, E55.9 - Vitamin D deficiency, unspecified, E78.00 - Pure hypercholesterolemia, unspecified, N40.0 - Benign prostatic hyperplasia without lower urinary tract symptoms, Q99.2 - Fragile X chromosome, Z13.1 - Encounter for screening for diabetes mellitus Lipid Panel 02/20/25 D64.9 - Anemia, unspecified, E03.9 - Hypothyroidism, unspecified, E55.9 - Vitamin D deficiency, unspecified, E78.00 - Pure hypercholesterolemia, unspecified, N40.0 - Benign prostatic hyperplasia without lower urinary tract symptoms, Q99.2 - Fragile X chromosome, Z13.1 - Encounter for screening for diabetes mellitus PSA,Total (Free>4and<10) 02/20/25 D64.9 - Anemia, unspecified, E03.9 - Hypothyroidism, unspecified, E55.9 - Vitamin D deficiency, unspecified, E78.00 - Pure hypercholesterolemia, unspecified, N40.0 - Benign prostatic hyperplasia without lower urinary tract symptoms, Q99.2 - Fragile X chromosome, Z13.1 - Encounter for screening for diabetes mellitus Thyroid Stimulating Hormone 02/20/25 D64.9 - Anemia, unspecified, E03.9 - Hypothyroidism, unspecified, E55.9 - Vitamin D deficiency, unspecified, E78.00 - Pure hypercholesterolemia, unspecified, N40.0 - Benign prostatic hyperplasia without lower urinary tract symptoms, Q99.2 - Fragile X chromosome, Z13.1 - Encounter for screening for diabetes mellitus Free T4 (Free Thyroxine) 02/20/25 D64.9 - Anemia, unspecified, E03.9 - Hypothyroidism, unspecified, E55.9 - Vitamin D deficiency, unspecified, E78.00 - Pure hypercholesterolemia, unspecified, N40.0 - Benign prostatic hyperplasia without lower urinary tract symptoms, Q99.2 - Fragile X chromosome, Z13.1 - Encounter for screening for diabetes mellitus Vitamin D 25-OH Total 02/20/25 D64.9 - Anemia, unspecified, E03.9 - Hypothyroidism, unspecified, E55.9 - Vitamin D deficiency, unspecified, E78.00 - Pure hypercholesterolemia, unspecified, N40.0 - Benign prostatic hyperplasia without lower urinary tract symptoms, Q99.2 - Fragile X chromosome, Z13.1 - Encounter for screening for diabetes mellitus
[2024-12-10 11:40] VITALS: BP 120/82; PULSE 66; RESP 14; O2SAT 96; BMI 25.0
== END 2024-12-10 12:10 | disposition home or self-care (01) ==
PROVIDERS: PCP Internal Medicine; Visit Provider Internal Medicine
DX: R26.81 Unsteadiness on feet (principal); D64.9 Anemia, unspecified; S00.01XA Abrasion of scalp, initial encounter

== ENCOUNTER → 2024-12-10 10:53 | Outpatient (BNVA) | payer MEDICARE, MEDICAID, SELFPAY | PROVIDERS: PCP Internal Medicine; Visit Provider Internal Medicine | DX: R26.81 Unsteadiness on feet (principal); D64.9 Anemia, unspecified; S00.01XD Abrasion of scalp, subsequent encounter | CPT/HCPCS: 99212 ==

== ENCOUNTER → 2025-01-14 14:20 | Outpatient (BNV) | payer MEDICARE, MEDICAID, SELFPAY | PROVIDERS: PCP Internal Medicine; Visit Provider Internal Medicine Medical Oncology | DX: D50.9 Iron deficiency anemia, unspecified (principal) | CPT/HCPCS: 99204 ==

== ENCOUNTER 2025-02-26 09:26 | Outpatient (REF) | payer MEDICARE, MEDICAID, SELFPAY ==
[2025-02-26 13:38] LABS: MANUAL DIFF FLAG NO
[2025-02-26 13:45] LABS: Basophils Absolute Auto 0.1 X10*3/uL (0.0-0.2); Basophils Percent Auto 0.8 % (0-2); Eosinophils Absolute Auto 0.2 X10*3/uL (0.0-0.4); Hematocrit 37.6 % (42.0-52.0); Hemoglobin 12.3 g/dl (14.0-18.0); Imm Gran Abs Auto 0.03 X10*3/uL (0.00-0.03); Imm Gran Pct Auto 0.5 % (0.0-0.4); Lymphocytes Absolute Auto 1.2 X10*3/uL (1.2-4.9); Lymphocytes Percent Auto 19.4 % (20-40); Mean Corpuscular HGB Conc 32.7 g/dl (31.0-36.0); Mean Corpuscular Hemoglobin 30.1 pg (27.0-33.0); Mean Corpuscular Volume 91.9 fL (80.0-98.0); Mean Platelet Volume 10.3 fL (9.4-12.4); Monocytes Absolute Auto 0.5 X10*3/uL (0.1-1.2); Monocytes Percent Auto 7.9 % (2-11); Neutrophils Absolute Auto 4.1 x10*3/uL (2.0-8.3); Neutrophils Percent Auto 68.4 % (45-73); Platelet Count 219 X10*3/uL (160-400); Red Blood Count 4.09 X10*6/uL (4.60-5.80); Red Cell Distribution Width 13.2 % (11.0-16.0)
[2025-02-26 14:11] LABS: Alanine Aminotransferase 15 U/L (0-40); Anion Gap 13 (12-20); Aspartate Amino Transferase 31 U/L (5-37); Blood Urea Nitrogen 25 mg/dL (9-16); Calcium 9.1 mg/dL (8.4-10.2); Carbon Dioxide 25 mmol/L (22-29); Chloride 109 mmol/L (96-108); Cholesterol 116 mg/dL (<200); Estimated Glomerular Filt Rate > 60; Glucose Fasting 90 mg/dL (60-99); HDL Cholesterol 35 mg/dL (>40); Iron 87 mcg/dL (45-160); LDL Cholesterol Calculated 71 mg/dL (<100); Percent Iron Saturation 26 % (15-50); Potassium 4.1 mmol/L (3.3-5.1); Sodium 143 mmol/L (135-145); Total Iron Binding Capacity 339 mcg/dL (228-428); Triglycerides 51 mg/dL (<150); Unsaturated Iron Binding 252 ug/dL
[2025-02-26 14:22] LABS: PSA,Total (Free>4and<10) 0.58 ng/mL (0.00-4.00)
[2025-02-26 14:30] LABS: Free T4 (Free Thyroxine) 1.25 ng/dL (0.71-1.85); Thyroid Stimulating Hormone 0.23 uIU/mL (0.32-4.0); Vitamin D 25-OH Total 47.6 ng/mL (>30)
== END 2025-02-26 09:27 | disposition home or self-care (01) ==
LOC: HO.HMGCLDS 09:26
PROVIDERS: PCP Internal Medicine; Visit Provider Internal Medicine
DX: D64.9 Anemia, unspecified (principal); E55.9 Vitamin D deficiency, unspecified; N40.0 Benign prostatic hyperplasia without lower urinary tract symptoms; E03.9 Hypothyroidism, unspecified; E78.00 Pure hypercholesterolemia, unspecified; Q99.2 Fragile X chromosome; Z13.1 Encounter for screening for diabetes mellitus; Z12.5 Encounter for screening for malignant neoplasm of prostate
CPT/HCPCS: 36415; 80048; 80061; 82306; 83540; 84153; 84439; 84443; 84450; 84460; 85025

== ENCOUNTER 2025-02-27 10:24 | Outpatient (AMB) | payer MEDICARE, MEDICAID, SELFPAY ==
--- NOTE | 2025-02-27 11:28 | MHC.PC.OV ---
Vital Signs 02/27/25 11:39 Height 5 ft 3 in Weight 152 lb BMI 26.9 BP 102/70 Blood Pressure Location Lt brachial Position Sitting Respiration 16 Pulse 68 Pulse Source Pulse Oximeter Temp 97.9 F Temp Source Oral Pulse Oximetry (%) 97 Oxygen Delivery Method Room Air Intake Visit Reasons: annual PE Intake Note: Pt is here today for his PE Allergies No Known Allergies Allergy (Verified 12/10/24 11:43) Medication List - Last Reconciled 02/27/25 by Adeline Farrar MD acetaminophen ER (Tylenol 8 Hour) 650 mg PO Q8H PRN calcium carbonate-vitamin D3 500 mg-10 mcg (400 unit) 1 tab PO DAILY cholecalciferol (vitamin D3) 50 mcg PO DAILY colloidal oatmeal 1% (Aveeno Moisturizing) Apply small amount to chest and abdomen 2 times a day; dextromethorphan HBr 15 mg PO Q8H fenofibrate nanocrystallized 145 mg PO DAILY finasteride 5 mg PO DAILY fluoxetine 20 mg PO DAILY levothyroxine 137 mcg PO DAILY lorazepam 0.5 mg PO BID PRN nystatin 1 appl topical DAILY PRN omeprazole 20 mg PO BEDTIME pediatric multivitamin no.17 (Children's Chew Multivitamin tablet) 1 tab PO .qd 90 days psyllium husk (Reguloid (psyllium husk)) 0.4 grams PO QAM risperidone 1 mg PO DAILY [transport chair As directed NS] [transport chair need with seatbelt , leg rests and foot rests ] Tobacco use date assessed: 02/27/25 Fall risk assessment: 1 Fall in past year Last assessed Fall Risk: 02/27/25 Dental Screening Dental Screen Date: 02/27/25 Did you have a dental visit in the last 12 months?: No Did you have a dental problem in the last 6 months where you did not have access to dental care?: No Was dental information given to patient?: No HPI HPI Comments History of Present Illness Details 74-year-old male with history OCT, with the occasional agitation, benign prostatic hyperplasia, GERD, acquired hypothyroidism, fragile X syndrome, her cholesterol any, decreased hearing in both ears, arthritis, gait instability, with normocytic normochromic anemia, here today for his physical exam. He is accompanied today by his caregiver lives in a jail. As per caregiver patient's, gait has been unsteady and frequently has a tendency to lean towards the right side, had several falls in the past. Also has difficulty walking for more than 200 m without resting to pain stiffness in knees and hips. He has tried using a cane and walker in the past but is very unsteady, which has led to several falls. They are currently applying for transport wheelchair to use when he goes outside to a tenderness day program or goes on outings with his other jail members. It with a allow him to be more engaged in his surroundings, allow him to get out of his home. She had recent fasting labs done which showed normal lipids, fasting glucose, normal electrolytes and renal function, thyroid levels are within normal as well as vitamin-D level. Blood pressure stable controlled on present treatment. Has recent labs also showed normocytic normochromic anemia. Screening colonoscopy has been ordered in the past but patient repeatedly declined he is also not wanting to use Cologuard for colon cancer screening. [facility], [facility] Medical History (Updated 03/09/25 @ 12:37 by Adeline Farrar MD) Normocytic normochromic anemia Gait instability Hypertrophic toenail Arthritis Hearing difficulty of both ears Vitamin D deficiency OCD (obsessive compulsive disorder) Anxiety Benign prostatic hyperplasia GERD (gastroesophageal reflux disease) Acquired hypothyroidism Fragile X syndrome Hypercholesterolemia Surgical History No history of previous surgery Family History Other Unknown family medical history Social History (Updated 01/14/25 @ 14:33 by Usha Mcdaniel) Household Members: Caregiver Housing: Assisted Living Facility Housing Other:: jail Are you a primary career guidance counselor to a significant other at home: No Alcohol intake: never Patient Tobacco Use Status: Never used Tobacco e-Cigarette/Vaping Use: Never Used Second Hand Smoke Exposure: No service: No Current occupational status: disabled Current occupational exposures/hazards: No Cognitive needs: No Hearing needs: No Vision needs: No Questionnaire Thrive Questionnaire Date Thrive assessed: 02/23/24 I am a: Patient What is your living situation today?: I have a steady place to live Within the past 12 months, did the food you bought not last and you didn't have the money to get more?: I choose not to answer this question Within the past 12 months, did you worry whether your food would run out before you got money to buy more?: I choose not to answer this question Do you have trouble paying for medicines?: I choose not to answer this question Do you have trouble getting transportation to medical appointments?: No Do you have trouble paying your heating and electricity bill?: No Do you have trouble taking care of your child, family member or friend?: No Do you have trouble with day-to-day activities such as bathing, preparing meals, shopping, managing finances, etc.?: No Are you currently unemployed and looking for a job?: I choose not to answer this question Are you interested in more education?: No Please select the resources that you would like help with: None Currently or been in a relationship where the following occur: No concerns reported THRIVE Score: 0 AUDIT C Alcohol Use Questionnaire (AUDIT-C) 3. How often do you have six or more drinks on one occasion?: Never Total Score: 0 ANURAG-7 AMB Questionnaire ANURAG-7 Date ANURAG - 7 assessed: 02/20/23 Source: Developed by Drs. Dany Odom, Daly Perdue, Ernesto Hayden and colleagues, with an educational radha from [employer]. Review of Systems Const Reports as per HPI ENT Reports no additional complaints Card Reports no additional complaints and Denies dyspnea Resp Denies cough and Denies dyspnea GI Reports no additional complaints Details: Testicular mass Musc Reports no additional complaints Skin/Breast Details: No rash or lesions Neuro Details: Has frequent episodes of gait instability and frequent falls Psych Reports no additional complaints Endo Reports no additional complaints Vince/Lymph Denies easy bleeding Aller/Immun Reports no additional complaints Physical exam (Primary Care) Vital Signs: Last Vital Signs Temp 97.9 F 02/27/25 11:39 Pulse 68 02/27/25 11:39 Resp 16 02/27/25 11:39 BP 102/70 02/27/25 11:39 Pulse Ox 97 02/27/25 11:39 Oxygen Delivery Method Room Air 02/27/25 11:39 BMI result Body Mass Index 26.9 Tobacco/Smoking Status: Tobacco use Status Tobacco use date assessed 02/27/25 02/27/25 11:41 Patient Tobacco Use Status Never used Tobacco 02/27/25 11:29 e-Cigarette/Vaping Use Never Used 02/27/25 11:29 Thrive Assessment: Date of Thrive Assessment Date Thrive assessed 02/23/24 02/27/25 11:29 Currently or been in a relationship where the following occur: No concerns reported Const General: comfortable Orientation/consciousness: oriented to person HENMT Other: Healing abrasion noted on back of scalp, nontender to palpation Head: Yes normocephalic Neck Neck: Yes full ROM, Yes no lymphadenopathy and Yes supple Chest Chest palpation & inspection: normal inspection of the chest Resp Auscultation: clear to auscultation bilaterally Cardio Other: S1-S2 present regular rate and rhythm GI Other: Normal bowel sounds, soft, nontender with no mass palpated Male General Exam: Yes normal external exam Back/Spine/Pelvis Other: Kyphosis Skin General skin exam: no rashes or lesions noted Neuro Other: Unsteady gait noted General: oriented to person, moves all extremities and no focal motor deficits Extrem General: Yes full ROM, Yes no joint enlargement, Yes no clubbing, cyanosis or edema and Yes no calf tenderness Results Reviewed Results Reviewed: Name: Raul Calderon Age/Sex: 74/M : 1950 Unit#: [id number] Attend Dr: Adeline Farrar MD Re02/26/25 Status: DEP REF Location: [facility] Disch: SPEC : [id number] JULIANA: 02/26/25 STATUS: COMP REQ : [id number] RECD: 02/26/[address]: Adeline Farrar MD COMP: 02/26/25 ENTERED: 02/26/[address] [facility] DR: ORDERED: CBC Auto Diff Test Result Flag Reference WBC 6.0 4.8-10.8 X10*3/uL RBC 4.09 L 4.60-5.80 X10*6/uL HGB 12.3 L 14.0-18.0 g/dl HCT 37.6 L 42.0-52.0 % MCV 91.9 80.0-98.0 fL MCH 30.1 27.0-33.0 pg MCHC 32.7 31.0-36.0 g/dl RDW 13.2 11.0-16.0 % PLT 219 160-400 X10*3/uL MPV 10.3 9.4-12.4 fL Neut Pct Auto 68.4 45-73 % ImGran Pct Auto 0.5 H 0.0-0.4 % Lymp Pct Auto 19.4 L 20-40 % Gray Pct Auto 7.9 2-11 % Eos Pct Auto 3.0 0-4 % Baso Pct Auto 0.8 0-2 % NRBC Pct Auto 0.0 0.0-0.2 /100WBC ANC Neut Abs # 4.1 2.0-8.3 x10*3/uL ImGran Abs Auto 0.03 0.00-0.03 X10*3/uL Lymph Abs Auto 1.2 1.2-4.9 X10*3/uL Gray Abs Auto 0.5 0.1-1.2 X10*3/uL Eos Abs Auto 0.2 0.0-0.4 X10*3/uL Baso Abs Auto 0.1 0.0-0.2 X10*3/uL NRBC Abs Auto 0.000 0.0-0.012 X10*3/uL Name: Raul Calderon Age/Sex: 74/M : 1950 Unit#: [id number] Attend Dr: Adeline Farrar MD Re02/26/25 Status: DEP REF Location: [facility] Disch: SPEC : [id number] JULIANA: 02/26/25 STATUS: COMP REQ : [id number] RECD: 02/26/[address]: Adeline Farrar MD COMP: 02/26/250 ENTERED: 02/26/[address]: ORDERED: Met Prof Fast, IRON PROF, AST, ALT, Lipid Panel, Vitamin D 25-OH, Free T Test Result Flag Reference Sodium 143 135-145 mmol/L Potassium 4.1 3.3-5.1 mmol/L CL 109 H 96-108 mmol/L CO2 25 22-29 mmol/L Gap 13 12-20 BUN 25 H 9-16 mg/dL Creat 1.11 0.5-1.4 mg/dL eGFR > 60 Chronic Kidney Disease: Estimated GFR < 60 mL/min/1.73m2 Severe Kidney Disease: Estimated GFR < 15 mL/min/1.73m2 FBS 90 60-99 mg/dL CA 9.1 8.4-10.2 mg/dL Iron 87 45-160 mcg/dL TIBC 339 228-428 mcg/dL Saturation 26 15-50 % UIBC 252 ug/dL AST (GOT) 31 5-37 U/L ALT (GPT) 15 0-40 U/L Triglyceride 51 <150 mg/dL Desirable Triglyceride: less than 150 mg/dL Borderline High Triglyceride 150-199 mg/dL High Triglyceride: 200-499 mg/dL Very High Triglyceride: greater than or equal to 5OO mg/dL Cholesterol 116 <200 mg/dL Desirable Cholesterol: less than 200 mg/dL Borderline High Cholesterol: 200-239 mg/dL High Cholesterol: greater than 239 mg/dL LDL Calculated 71 <100 mg/dL Desirable LDL: less than 100 mg/dL Near Optimal/Above Optimal LDL: 110-129 mg/dL Borderline High LDL: 130-159 mg/dL High LDL: 160-189 mg/dL Very High LDL: greater than or equal to 190 mg/dL HDL 35 L >40 mg/dL Desirable HDL: greater than 40 mg/dL Note: This HDL assay may give artificially low results in patients with liver disease. Vitamin D 25-OH 47.6 >30 ng/mL Health Based Reference Values* < 20 ng/mL Deficient 20-30 ng/mL Insufficient > 30 ng/mL Sufficient *Garry CRAIN. N Engl J Med. 2007;357:266-280 There is no well-established upper level of normal vitamin D levels. Some laboratories use 50 ng/mL as an upper limit of normal. However, toxicity is patient-dependent and may occur at any level. Careful correlation with the patient's presentation is necessary and, if there is concern for vitamin D toxicity, treatment should be considered irrespective of the serum level. Care must be taken in interpreting Vitamin D results from different laboratories and methodologies. Published data demonstrated that results from patients undergoing hemodialysis may show a negative bias when tested with various automated 25-OH vitamin D assays when compared to LC-MS/MS. When testing samples from patients whose predominant form of Vitamin D is Vitamin D2, such as patients receiving Vitamin D2 supplementation, results that are subtherapeutic should be confirmed with another method such as LC-MS/MS. Free T4 1.25 0.71-1.85 ng/dL TSH 3rd Gen. 0.23 L 0.32-4.0 uIU/mL TSH 3rd Generation ([facility]) Coding Level of Care Code Est Pt Prev Care >65y(74180) Diagnoses Annual visit for general adult medical examination with abnormal findings Z00. Hypercholesterolemia E78.00 Acquired hypothyroidism E03.9 Fragile X syndrome Q99.2 Benign prostatic hyperplasia N40.0 OCD (obsessive compulsive disorder) F42.9 Arthritis M19.90 Gait instability R26.81 Normocytic normochromic anemia D64.9 Assessment & Plan Assessment & Plan (1) Annual visit for general adult medical examination with abnormal findings: Code(s): Z00. - Encounter for general adult medical examination with abnormal findings Plan: Recent lab results reviewed patient and caregiver Recommended dental visit every 6 months and regular eye exams, at least every 2 years. Cologuard test ordered for colon cancer screening, up-to-date with his vaccinations (2) Hypercholesterolemia: Code(s): E78.00 - Pure hypercholesterolemia, unspecified Category: Medical Plan: Fasting lipids are within normal limits, continued on fenofibrate 145 mg daily (3) Acquired hypothyroidism: Code(s): E03.9 - Hypothyroidism, unspecified Category: Medical Plan: Thyroid levels are within normal limits, continue current dose of levothyroxine at 137 mcg daily (4) Fragile X syndrome: Code(s): Q99.2 - Fragile X chromosome Category: Medical Plan: Has a caregiver, currently living in a jail (5) Benign prostatic hyperplasia: Comment: Followed by Dr. Carolyn Grubbs yearly, last seen 07/2022 Code(s): N40.0 - Benign prostatic hyperplasia without lower urinary tract symptoms Category: Medical Plan: Followed by Urology, currently on finasteride (6) OCD (obsessive compulsive disorder): Code(s): F42.9 - Obsessive-compulsive disorder, unspecified Category: Medical Plan: Followed by Psychiatry, currently on fluoxetine, risperidone (7) Arthritis: Code(s): M19.90 - Unspecified osteoarthritis, unspecified site Category: Medical Plan: Takes acetaminophen ER 650 mg 1 tablet every 8 hours as needed. Patient also has been written for transport chair to help him with ambulation, and in getting out of the house refill (8) Gait instability: Code(s): R26.81 - Unsteadiness on feet Category: Medical Plan: He has been prescribed a transport chair for assistance in goes supporting him out of the house and to his day program and other group activities outside the home. He has a caregiver who assists him and will be helping pushing transport chair (9) Normocytic normochromic anemia: Code(s): D64.9 - Anemia, unspecified Category: Medical Plan: Patient still with persistent anemia no overt source of bleeding seen, ENT caregiver has been advised that he me to colonoscopy but patient refuses to do procedure, but is willing to do the Cologuard test. Repeat iron profile and CBC in six-months Orders: Orders Free T4 (Free Thyroxine) 08/23/25 E78.00 - Pure hypercholesterolemia, unspecified, E03.9 - Hypothyroidism, unspecified, D64.9 - Anemia, unspecified Lipid Panel 08/23/25 E78.00 - Pure hypercholesterolemia, unspecified, E03.9 - Hypothyroidism, unspecified, D64.9 - Anemia, unspecified Thyroid Stimulating Hormone 08/23/25 E78.00 - Pure hypercholesterolemia, unspecified, E03.9 - Hypothyroidism, unspecified, D64.9 - Anemia, unspecified Complete Blood Count Auto Diff 08/23/25 E78.00 - Pure hypercholesterolemia, unspecified, E03.9 - Hypothyroidism, unspecified, D64.9 - Anemia, unspecified IRON PROFILE 08/23/25 E78.00 - Pure hypercholesterolemia, unspecified, E03.9 - Hypothyroidism, unspecified, D64.9 - Anemia, unspecified Referrals Cologuard Test Z12.12 - Encounter for screening for malignant neoplasm of rectum, Z12.11 - Encounter for screening for malignant neoplasm of colon
[2025-02-27 11:39] VITALS: BP 102/70; PULSE 68; RESP 16; TEMP 36.6; O2SAT 97; BMI 26.9
== END 2025-02-27 12:16 | disposition home or self-care (01) ==
LOC: HO.HMCC 10:24
PROVIDERS: PCP Internal Medicine; Visit Provider Internal Medicine
DX: Z00.01 Encounter for general adult medical examination with abnormal findings (principal); E78.00 Pure hypercholesterolemia, unspecified; E03.9 Hypothyroidism, unspecified; Q99.2 Fragile X chromosome; N40.0 Benign prostatic hyperplasia without lower urinary tract symptoms; F42.9 Obsessive-compulsive disorder, unspecified; M19.90 Unspecified osteoarthritis, unspecified site; R26.81 Unsteadiness on feet; D64.9 Anemia, unspecified

== ENCOUNTER → 2025-02-27 10:24 | Outpatient (BNVA) | payer MEDICARE, MEDICAID, SELFPAY | PROVIDERS: PCP Internal Medicine; Visit Provider Internal Medicine | DX: Z00.01 Encounter for general adult medical examination with abnormal findings (principal); E78.00 Pure hypercholesterolemia, unspecified; E03.9 Hypothyroidism, unspecified; Q99.2 Fragile X chromosome; N40.0 Benign prostatic hyperplasia without lower urinary tract symptoms; F42.9 Obsessive-compulsive disorder, unspecified; M19.90 Unspecified osteoarthritis, unspecified site; R26.81 Unsteadiness on feet; D64.9 Anemia, unspecified | CPT/HCPCS: 99397 ==

== ENCOUNTER 2025-04-07 16:20 | Outpatient (AMB) | payer MEDICARE, MEDICAID, SELFPAY ==
--- NOTE | 2025-04-07 16:20 | AM.OFFWIN_ITS ---
Intake Vital Signs 04/07/25 16:21 Height 5 ft 3 in Weight 152 lb BMI 26.9 BP 108/74 Blood Pressure Location Lt brachial Position Sitting Pulse 58 Pulse Source Pulse Oximeter Temp 98.2 F Temp Source Temporal Artery Scan Pulse Oximetry (%) 97 Oxygen Delivery Method Room Air Intake Visit Reasons: PE Cough, sore throat Intake Note: Pt presents to the office today for c/o cough, congestion, and sore throat x3 days. Patient Tobacco Use Status: Never used Tobacco Allergies No Known Allergies Allergy (Verified 04/07/25 16:20) HPI HPI Comments History of Present Illness Details 74 y/o Male patient who presents to the walk in clinic with a Care- taker who provides history. Pt has mental disability - Fragile X syndrome. Reports Cough, chest/nasal congestion and Sore-throat symptoms for 3 days now. Pt went to Day care Program today, and he was sent home due to his symptoms. [facility] Medical History (Updated 04/07/25 @ 16:36 by Petrona Tierney NP) Cough Normocytic normochromic anemia Gait instability Hypertrophic toenail Arthritis Hearing difficulty of both ears Vitamin D deficiency OCD (obsessive compulsive disorder) Anxiety Benign prostatic hyperplasia GERD (gastroesophageal reflux disease) Acquired hypothyroidism Fragile X syndrome Hypercholesterolemia Surgical History No history of previous surgery Family History Other Unknown family medical history Social History Household Members: Caregiver Housing: Assisted Living Facility Housing Other:: [facility] Are you a primary ambulatory care nurse to a significant other at home: No Alcohol intake: never Patient Tobacco Use Status: Never used Tobacco e-Cigarette/Vaping Use: Never Used Second Hand Smoke Exposure: No service: No Current occupational status: disabled Current occupational exposures/hazards: No Cognitive needs: No Hearing needs: No Vision needs: No Review of Systems Const All systems reviewed & are unremarkable except as noted in HPI and below Physical Exam Vital Signs: Last Vital Signs Pulse 58 04/07/25 16:21 BP 108/74 04/07/25 16:21 Pulse Ox 97 04/07/25 16:21 Oxygen Delivery Method Room Air 04/07/25 16:21 BMI result Body Mass Index 26.9 Const General: no acute distress and poor hygiene Nutritional Appearance: well nourished Limitations: behavioral limitations Resp Effort & Inspection: normal respiratory effort, able to speak in complete sentences, no audible wheezes and Actively coughing Auscultation: clear to auscultation bilaterally, no crackles, no rales, no rhonchi and no wheezes Cardio Heart sounds: S1 normal heart sound present and S2 normal heart sound present Assessment & Plan Assessment & Plan (1) Cough: Code(s): R05.9 - Cough, unspecified Qualifiers: Cough type: acute Qualified Code(s): R05.1 - Acute cough Plan: Ordered Cough medicines Rest and hydrate well with warm fluids. Acetaminophen for pain relief. Medications: New benzonatate 200 mg (2 x 100 mg) PO TID 90 caps 0RF R05.1 - Acute cough Changed From dextromethorphan HBr 15 mg PO Q8H R05.1 - Acute cough To dextromethorphan HBr 30 mg (10 mL) PO Q8H 118 mL 0RF R05.1 - Acute cough Coding Level of Care Code Est Pt Level 4 (55101) Diagnoses Acute cough R05.1 Cough type: acute Time Spent (min) 20
[2025-04-07 16:21] VITALS: BP 108/74; PULSE 58; TEMP 36.8; O2SAT 97; BMI 26.9
== END 2025-04-07 16:36 | disposition home or self-care (01) ==
PROVIDERS: PCP Internal Medicine; Visit Provider Nurse Practitioner Family
DX: R05.1 Acute cough (principal)

== ENCOUNTER → 2025-04-07 16:20 | Outpatient (BNVA) | payer MEDICARE, MEDICAID, SELFPAY | PROVIDERS: PCP Internal Medicine; Visit Provider Nurse Practitioner Family | DX: R05.1 Acute cough (principal) | CPT/HCPCS: 99212 ==

== ENCOUNTER 2025-05-27 11:57 | Outpatient (AMB) | payer MEDICARE, MEDICAID, SELFPAY ==
[2025-05-27 12:03] VITALS: BP 124/82; PULSE 79; RESP 15; TEMP 36.7; O2SAT 97; BMI 26.9
--- NOTE | 2025-05-27 12:03 | MHC.PC.OV ---
Vital Signs 05/27/25 12:03 Height 5 ft 3 in Weight 152 lb BMI 26.9 BP 124/82 Blood Pressure Location Rt brachial Position Sitting Respiration 15 Pulse 79 Pulse Source Pulse Oximeter Temp 98.1 F Temp Source Oral Pulse Oximetry (%) 97 Oxygen Delivery Method Room Air Intake Visit Reasons: bad cough and fever 101.2 Intake Note: Pt is here today c/o cough and fever x5days Allergies No Known Allergies Allergy (Verified 05/27/25 23:33) Medication List - Last Reconciled 05/27/25 by Adeline Farrar MD acetaminophen ER (Tylenol 8 Hour) 650 mg PO Q8H PRN azithromycin For 250 mg dose pack: take 500 mg today (day 1), then 250 mg for 4 days (days 2-5) PO benzonatate 200 mg (2 x 100 mg) PO TID calcium carbonate-vitamin D3 500 mg-10 mcg (400 unit) 1 tab PO QPM cholecalciferol (vitamin D3) 50 mcg PO QPM colloidal oatmeal 1% (Aveeno Moisturizing) Apply small amount to chest and abdomen 2 times a day; dextromethorphan HBr 30 mg (10 mL) PO Q8H fenofibrate nanocrystallized 145 mg PO QAM finasteride 5 mg PO DAILY fluoxetine 20 mg PO DAILY levothyroxine 137 mcg PO QAM lorazepam 0.5 mg PO BID PRN nystatin 1 appl topical DAILY PRN omeprazole 20 mg PO BEDTIME pediatric multivitamin no.42 (Children's Multivitamin chewable tablet) 1 tab PO QAM psyllium husk (Reguloid (psyllium husk)) 0.4 grams PO QAM risperidone 0.5 mg PO DAILY [transport chair As directed NS] [transport chair need with seatbelt , leg rests and foot rests ] Tobacco use date assessed: 05/27/25 Dental Screening Dental Screen Date: 02/27/25 HPI bad cough and fever 101.2 HPI Details 74-year-old male presenting today accompanied by caregiver complaining of a dry hacking cough, nasal congestion, and intermittent episodes of fever, with temperature reaching 1.2 degrees F over the weekend, which has been present now for the last 5 days.. - No breathing difficulties or chest pain reported. - given Tessalon Perles as needed for coughing spells, providing temporary relief, and acetaminophen as needed for fever. - Appetite is reduced, but energy levels remain stable. - Previous labs indicated slight anemia, with normal chemistry and kidney function. [facility] Medical History Cough with fever Cough Normocytic normochromic anemia Gait instability Hypertrophic toenail Arthritis Hearing difficulty of both ears Vitamin D deficiency OCD (obsessive compulsive disorder) Anxiety Benign prostatic hyperplasia GERD (gastroesophageal reflux disease) Acquired hypothyroidism Fragile X syndrome Hypercholesterolemia Surgical History No history of previous surgery Family History Other Unknown family medical history Social History Household Members: Caregiver Housing: Assisted Living Facility Housing Other:: senior living Are you a primary health care law specialist to a significant other at home: No Alcohol intake: never Patient Tobacco Use Status: Never used Tobacco e-Cigarette/Vaping Use: Never Used Second Hand Smoke Exposure: No service: No Current occupational status: disabled Current occupational exposures/hazards: No Cognitive needs: No Hearing needs: No Vision needs: No Questionnaire Thrive Questionnaire Date Thrive assessed: 02/23/24 ANURAG-7 AMB Questionnaire ANURAG-7 Date ANURAG - 7 assessed: 02/20/23 Source: Developed by Drs. Dany Odom, Daly Perdue, Ernesto Hayden and colleagues, with an educational radha from [employer]. Review of Systems Const All systems reviewed & are unremarkable except as noted in HPI and below Physical exam (Primary Care) Vital Signs: Last Vital Signs Temp 98.1 F 05/27/25 12:03 Pulse 79 05/27/25 12:03 Resp 15 05/27/25 12:03 BP 124/82 05/27/25 12:03 Pulse Ox 97 05/27/25 12:03 Oxygen Delivery Method Room Air 05/27/25 12:03 BMI result Body Mass Index 26.9 Tobacco/Smoking Status: Tobacco use Status Tobacco use date assessed 05/27/25 05/27/25 12:13 Patient Tobacco Use Status Never used Tobacco 05/27/25 12:04 e-Cigarette/Vaping Use Never Used 05/27/25 12:04 Thrive Assessment: Date of Thrive Assessment Date Thrive assessed 02/23/24 05/27/25 12:04 Const General: no acute distress and alert HENMT Ears: external ears normal General nose exam: Normal external nose present and no nasal discharge noted Mouth: Normal oral and palatal mucosa present, oropharynx normal and moist mucous membranes Neck Neck: Yes full ROM, Yes no lymphadenopathy and Yes supple Resp Auscultation: no rales, no wheezes and diminished lung sounds Cardio Other: S1-S2 present regular rate and rhythm GI Palpation (GI): nontender, no guarding and no masses Auscultation: normal bowel sounds Neuro Other: Alert able to answer simple questions, ambulatory with positive kyphosis noted Extrem General: Yes full ROM, Yes no joint enlargement and Yes no pedal edema Coding Level of Care Code Est Pt Level 4 (62351) Diagnoses Cough with fever R05.9; R50.9 Acquired hypothyroidism E03.9 Assessment & Plan Assessment & Plan (1) Cough with fever: Code(s): R05.9 - Cough, unspecified; R50.9 - Fever, unspecified Category: Medical (2) Acquired hypothyroidism: Code(s): E03.9 - Hypothyroidism, unspecified Category: Medical Plan CBC with differential, chest X-ray and COVID-19 testing ordered. TSH with free T4 levels are so ordered. Empirically started on Azithromycin Z-Mauri, take two tablets on the first day, then one tablet daily for four days. Benzonatate capsules as needed for cough, and Tylenol for fever. A follow-up is recommended if there is no improvement after five days. Patient was informed and verbally consented to the use of an ambient scribe for clinic note documentation during this visit. Orders: Orders XR chest 2V Today R05.9 - Cough, unspecified, R50.9 - Fever, unspecified BinaxNOW Covid-19 Ag Today E03.9 - Hypothyroidism, unspecified, R05.9 - Cough, unspecified, R50.9 - Fever, unspecified Thyroid Stimulating Hormone Today E03.9 - Hypothyroidism, unspecified, R05.9 - Cough, unspecified, R50.9 - Fever, unspecified Free T4 (Free Thyroxine) Today E03.9 - Hypothyroidism, unspecified, R05.9 - Cough, unspecified, R50.9 - Fever, unspecified Complete Blood Count Auto Diff Today E03.9 - Hypothyroidism, unspecified, R05.9 - Cough, unspecified, R50.9 - Fever, unspecified Medications: New azithromycin For 250 mg dose pack: take 500 mg today (day 1), then 250 mg for 4 days (days 2-5) PO 6 tabs 0RF
== END 2025-05-27 13:12 | disposition home or self-care (01) ==
LOC: HO.HMCC 11:57
PROVIDERS: PCP Internal Medicine; Visit Provider Internal Medicine
DX: R05.9 Cough, unspecified (principal); R50.9 Fever, unspecified; E03.9 Hypothyroidism, unspecified

== ENCOUNTER 2025-05-27 11:57 | Outpatient (REF) | payer MEDICARE, MEDICAID, SELFPAY ==
--- NOTE | ~2025-05-27 | XR_ITS ---
EXAMINATION: XR CHEST 2 VIEWS HISTORY: R05.9 - Cough, unspecified COMPARISON: There are no prior studies available for comparison. FINDINGS: PA and lateral views of the chest are submitted. The patient is rotated to the right. There is lower lobe airspace opacity, best seen on the lateral view, compatible with pneumonia. There are tiny bilateral pleural effusions. There is no pneumothorax or pulmonary vascular congestion. The heart is normal in size. The bones are intact. XR/XR chest 2V IMPRESSION: Lower lobe pneumonia, best seen on the lateral view. Follow-up is recommended to document resolution. Electronically signed by: Dany Antunez MD 05/27/2025 03:49 PM EDT
[2025-05-27 13:02] LABS: Binax Now Covid-19 Ag Negative (Negative)
[2025-05-27 13:03] LABS: Binax Lot number: 869104; Binax Performed by: PAULP
[2025-05-27 16:12] LABS: MANUAL DIFF FLAG NO
[2025-05-27 16:17] LABS: Hematocrit 34.9 % (42.0-52.0); Hemoglobin 11.9 g/dl (14.0-18.0); Imm Gran Abs Auto 0.02 X10*3/uL (0.00-0.03); Imm Gran Pct Auto 0.3 % (0.0-0.4); Lymphocytes Absolute Auto 1.2 X10*3/uL (1.2-4.9); Mean Corpuscular HGB Conc 34.1 g/dl (31.0-36.0); Mean Corpuscular Hemoglobin 30.1 pg (27.0-33.0); Mean Corpuscular Volume 88.1 fL (80.0-98.0); NRBC Abs Auto 0.000 X10*3/uL (0.0-0.012); NRBC Pct Auto 0.0 /100WBC (0.0-0.2); Platelet Count 256 X10*3/uL (160-400); Red Blood Count 3.96 X10*6/uL (4.60-5.80); White Blood Count 7.3 X10*3/uL (4.8-10.8)
[2025-05-27 16:53] LABS: Free T4 (Free Thyroxine) 1.21 ng/dL (0.71-1.85); Thyroid Stimulating Hormone 0.56 uIU/mL (0.32-4.0)
[2025-05-28 10:12] LABS: Binax Internal Control QC Valid
== END 2025-05-27 11:58 | disposition home or self-care (01) ==
LOC: HO.HMGCX 11:57
PROVIDERS: PCP Internal Medicine; Visit Provider Internal Medicine
DX: K21.9 Gastro-esophageal reflux disease without esophagitis (principal); E03.9 Hypothyroidism, unspecified; R05.9 Cough, unspecified; R50.9 Fever, unspecified
CPT/HCPCS: 71046; 84439; 84443; 85025; 87811; 99212

== ENCOUNTER → 2025-05-27 15:36 | Outpatient (BNV) | payer MEDICARE, MEDICAID, SELFPAY | PROVIDERS: PCP Internal Medicine; Visit Provider Radiology Diagnostic Radiology | DX: J90 Pleural effusion, not elsewhere classified (principal) | CPT/HCPCS: 71046 ==

== ENCOUNTER 2025-06-18 13:44 | Outpatient (AMB) | payer MEDICARE, MEDICAID, SELFPAY ==
[2025-06-18 13:50] VITALS: BP 116/84; PULSE 73; RESP 15; TEMP 36.8; O2SAT 96; BMI 28.3
--- NOTE | 2025-06-18 13:50 | A.OFFPC_ITS ---
Vital Signs 06/18/25 13:50 Height 5 ft 3 in Weight 160 lb BMI 28.3 BP 116/84 Blood Pressure Location Rt brachial Position Sitting Respiration 15 Pulse 73 Pulse Source Pulse Oximeter Temp 98.2 F Temp Source Oral Pulse Oximetry (%) 96 Oxygen Delivery Method Room Air Intake Visit Reasons: rash buttocks Intake Note: Pt is here today c/o rash buttocks x4-5 days Allergies No Known Allergies Allergy (Verified 06/24/25 02:18) Medication List - Last Reconciled 06/24/25 by Adeline Farrar MD acetaminophen ER (Tylenol 8 Hour) 650 mg PO Q8H PRN calcium carbonate-vitamin D3 500 mg-10 mcg (400 unit) 1 tab PO QAM cholecalciferol (vitamin D3) 50 mcg PO QAM colloidal oatmeal 1% (Aveeno Moisturizing) Apply small amount to chest and abdomen 2 times a day; dextromethorphan HBr 30 mg (10 mL) PO Q8H fenofibrate nanocrystallized 145 mg PO QAM finasteride 5 mg PO DAILY fluoxetine 20 mg PO DAILY levothyroxine 137 mcg PO QAM nystatin 1 appl topical DAILY PRN omeprazole 20 mg PO BEDTIME pediatric multivitamin no.42 (Children's Multivitamin chewable tablet) 1 tab PO QAM psyllium husk (Reguloid (psyllium husk)) 0.4 grams PO QAM risperidone 0.5 mg PO DAILY [transport chair As directed NS] [transport chair need with seatbelt , leg rests and foot rests ] Tobacco use date assessed: 06/18/25 Last assessed Fall Risk: 06/18/25 Dental Screening Dental Screen Date: 02/27/25 HPI rash buttocks HPI Details - The patient is a 74-year-old male pres enting present today accompanied by caregiver complaining of a rash in buttock. Most of the history obtained from his caregiver, patient and able to answer questions in full detail. [facility] Medical History Cough with fever Cough Normocytic normochromic anemia Gait instability Hypertrophic toenail Arthritis Hearing difficulty of both ears Vitamin D deficiency OCD (obsessive compulsive disorder) Anxiety Benign prostatic hyperplasia GERD (gastroesophageal reflux disease) Acquired hypothyroidism Fragile X syndrome Hypercholesterolemia Surgical History No history of previous surgery Family History Other Unknown family medical history Social History Household Members: Caregiver Housing: Assisted Living Facility Housing Other:: residential Are you a primary healthcare liaison to a significant other at home: No Alcohol intake: never Patient Tobacco Use Status: Never used Tobacco e-Cigarette/Vaping Use: Never Used Second Hand Smoke Exposure: No service: No Current occupational status: disabled Current occupational exposures/hazards: No Cognitive needs: No Hearing needs: No Vision needs: No Questionnaire PHQ-9 Over the last 2 weeks, how often have you been bothered by any of the following problems? 2. Feeling down, depressed, or hopeless: not at all 3. Trouble falling or staying asleep, or sleeping too much: not at all 4. Feeling tired or having little energy: not at all 5. Poor appetite or overeating: not at all 6. Feeling bad about yourself - or that you are a failure or have let yourself or your family down: not at all 7. Trouble concentrating on things, such as reading the newspaper or watching television: not at all 8. Moving or speaking so slowly that other people could have noticed. Or the opposite - being so fidgety or restless that you have been moving around a lot more than usual: not at all 9. Thoughts that you would be better off or of hurting yourself in some way: not at all Source: Developed by Drs. Dany Odom, Daly Perdue, Ernesto Hayden and colleagues, with an educational radha from [employer]. Thrive Questionnaire Date Thrive assessed: 12/10/24 I am a: Patient What is your living situation today?: I have a steady place to live Within the past 12 months, did the food you bought not last and you didn't have the money to get more?: I choose not to answer this question Within the past 12 months, did you worry whether your food would run out before you got money to buy more?: I choose not to answer this question Do you have trouble paying for medicines?: I choose not to answer this question Do you have trouble getting transportation to medical appointments?: No Do you have trouble paying your heating and electricity bill?: No Do you have trouble taking care of your child, family member or friend?: No Do you have trouble with day-to-day activities such as bathing, preparing meals, shopping, managing finances, etc.?: No Are you currently unemployed and looking for a job?: I choose not to answer this question Are you interested in more education?: No Please select the resources that you would like help with: None Currently or been in a relationship where the following occur: No concerns reported THRIVE Score: 0 ANURAG-7 AMB Questionnaire ANURAG-7 Date ANURAG - 7 assessed: 02/20/23 Source: Developed by Drs. Dany Odom, Daly Perdue, Ernesto Hayden and colleagues, with an educational radha from [employer]. Review of Systems Const All systems reviewed & are unremarkable except as noted in HPI and below Physical exam (Primary Care) Vital Signs: Last Vital Signs Temp 98.2 F 06/18/25 13:50 Pulse 73 06/18/25 13:50 Resp 15 06/18/25 13:50 BP 116/84 06/18/25 13:50 Pulse Ox 96 06/18/25 13:50 Oxygen Delivery Method Room Air 06/18/25 13:50 BMI result Body Mass Index 28.3 Tobacco/Smoking Status: Tobacco use Status Tobacco use date assessed 06/18/25 06/18/25 13:55 Patient Tobacco Use Status Never used Tobacco 06/18/25 13:55 e-Cigarette/Vaping Use Never Used 06/18/25 13:55 Thrive Assessment: Date of Thrive Assessment Date Thrive assessed 12/10/24 06/18/25 13:55 Currently or been in a relationship where the following occur: No concerns reported Const General: no acute distress and alert HENMT Ears: external ears normal General nose exam: Normal external nose present Cardio Other: S1-S2 present regular rate and rhythm GI Palpation (GI): nontender, no guarding and no masses Auscultation: normal bowel sounds Skin Other: Moderate amount retained stool smeared on perianal area, no rash seen at present time. Neuro Other: Alert able to answer simple questions, ambulatory with positive kyphosis noted Extrem General: Yes full ROM, Yes no joint enlargement and Yes no pedal edema Coding Level of Care Code Est Pt Level 4 (52510) Diagnoses Irritation of skin of perianal region K62.89 Assessment & Plan Assessment & Plan (1) Irritation of skin of perianal region: Code(s): K62.89 - Other specified diseases of anus and rectum Plan: Moderate amount of feces smeared around perianal area. Discussed proper hygiene which includes health with thoroughly cleaning perianal area after a bowel movement to avoid irritation in the perianal area. No need for other treatment at present time Medications: Changed From calcium carbonate-vitamin D3 500 mg-10 mcg (400 unit) one tab in am daily 1 tab PO QPM 90 tabs 0RF E55.9 - Vitamin D deficiency, unspecified To calcium carbonate-vitamin D3 500 mg-10 mcg (400 unit) one tab in am daily 1 tab PO QAM 90 tabs 1RF E55.9 - Vitamin D deficiency, unspecified From cholecalciferol (vitamin D3) one tab in am daily 50 mcg PO QPM 90 caps 2RF To cholecalciferol (vitamin D3) 50 mcg PO QAM 90 caps 2RF Refilled dextromethorphan HBr 30 mg (10 mL) PO Q8H 118 mL 0RF R05.1 - Acute cough
== END 2025-06-18 14:40 | disposition home or self-care (01) ==
LOC: HO.HMCC 13:45
PROVIDERS: PCP Internal Medicine; Visit Provider Internal Medicine
DX: K62.89 Other specified diseases of anus and rectum (principal)

== ENCOUNTER → 2025-06-18 13:44 | Outpatient (BNVA) | payer MEDICARE, MEDICAID, SELFPAY | PROVIDERS: PCP Internal Medicine; Visit Provider Internal Medicine | DX: K62.89 Other specified diseases of anus and rectum (principal) | CPT/HCPCS: 99212 ==

== ENCOUNTER 2025-07-31 12:53 | Outpatient (AMB) | payer MEDICARE, MEDICAID, SELFPAY ==
[2025-07-31 13:06] VITALS: BP 118/80; PULSE 73; TEMP 36.9; O2SAT 98; BMI 29.2
--- NOTE | 2025-07-31 13:06 | MHC.PC.OV ---
Vital Signs 07/31/25 13:06 Height 5 ft 3 in Weight 165 lb BMI 29.2 BP 118/80 Blood Pressure Location Rt brachial Position Sitting Pulse 73 Pulse Source Pulse Oximeter Temp 98.5 F Temp Source Oral Pulse Oximetry (%) 98 Oxygen Delivery Method Room Air Intake Visit Reasons: trouble swallowing Weld Fitter Required: No Accompanied by: Self / Same As Patient Allergies No Known Allergies Allergy (Verified 08/06/25 01:00) Medication List - Last Reconciled 08/06/25 by Adeline Farrar MD acetaminophen ER (Tylenol 8 Hour) 650 mg PO Q8H PRN calcium carbonate-vitamin D3 500 mg-10 mcg (400 unit) 1 tab PO QAM cholecalciferol (vitamin D3) 50 mcg PO QAM colloidal oatmeal 1% (Aveeno Moisturizing) Apply small amount to chest and abdomen 2 times a day; fenofibrate nanocrystallized 145 mg PO QAM finasteride 5 mg PO DAILY fluoxetine 20 mg PO DAILY levothyroxine 137 mcg PO QAM nystatin 1 appl topical DAILY PRN omeprazole 20 mg PO BEDTIME pediatric multivitamin no.42 (Children's Multivitamin chewable tablet) 1 tab PO QAM psyllium husk (Reguloid (psyllium husk)) 0.4 grams PO QAM risperidone 0.5 mg PO DAILY [transport chair As directed NS] [transport chair need with seatbelt , leg rests and foot rests ] Tobacco use date assessed: 06/18/25 Fall risk assessment: No Falls in past year Last assessed Fall Risk: 07/31/25 Dental Screening Dental Screen Date: 02/27/25 HPI trouble swallowing HPI Details The patient is a 74-year-old male with past medical history significant for fragile X syndrome, hypercholesterolemia, acquired hypothyroidism, GERD, benign prostatic hyperplasia, OCD and anxiety, hearing difficulty, normocytic normochromic anemia, presenting with dysphagia and gait instability. Dysphagia has been noted primarily with solid foods, particularly bread and meat, while liquids and pureed foods like mashed potatoes do not cause issues. The patient has not experienced choking with liquids such as iced coffee, suggesting a behavioral component to the dysphagia. Gait instability is characterized by leaning to one side while walking, and referred for physical therapy evaluation to assess the need for a walker or gait belt. The patient has not reported any falls [facility] Medical History (Updated 10/09/25 @ 13:39 by Adeline Farrar MD) Choking episode Cough with fever Cough Normocytic normochromic anemia Gait instability Hypertrophic toenail Arthritis Hearing difficulty of both ears Vitamin D deficiency OCD (obsessive compulsive disorder) Anxiety Benign prostatic hyperplasia GERD (gastroesophageal reflux disease) Acquired hypothyroidism Fragile X syndrome Hypercholesterolemia Surgical History No history of previous surgery Family History Other Unknown family medical history Social History Household Members: Caregiver Housing: Assisted Living Facility Housing Other:: [facility] Are you a primary care transition manager to a significant other at home: No Alcohol intake: never Patient Tobacco Use Status: Never used Tobacco e-Cigarette/Vaping Use: Never Used Second Hand Smoke Exposure: No service: No Current occupational status: disabled Current occupational exposures/hazards: No Cognitive needs: No Hearing needs: No Vision needs: No Questionnaire PHQ-9 Over the last 2 weeks, how often have you been bothered by any of the following problems? 1. Little interest or pleasure in doing things: not at all 2. Feeling down, depressed, or hopeless: not at all 3. Trouble falling or staying asleep, or sleeping too much: not at all 4. Feeling tired or having little energy: not at all 5. Poor appetite or overeating: not at all 6. Feeling bad about yourself - or that you are a failure or have let yourself or your family down: not at all 7. Trouble concentrating on things, such as reading the newspaper or watching television: not at all 8. Moving or speaking so slowly that other people could have noticed. Or the opposite - being so fidgety or restless that you have been moving around a lot more than usual: not at all 9. Thoughts that you would be better off or of hurting yourself in some way: not at all Total score: 0 Depression Screening Interpretation: Negative Depression Screening Done: Yes 17514 - PHQ-9 Billing: Yes Source: Developed by Drs. Dany Odom, Daly B.WErnesto Small and colleagues, with an educational radha from [employer]. Thrive Questionnaire Date Thrive assessed: 12/10/24 I am a: Patient What is your living situation today?: I have a steady place to live Within the past 12 months, did the food you bought not last and you didn't have the money to get more?: I choose not to answer this question Within the past 12 months, did you worry whether your food would run out before you got money to buy more?: I choose not to answer this question Do you have trouble paying for medicines?: I choose not to answer this question Do you have trouble getting transportation to medical appointments?: No Do you have trouble paying your heating and electricity bill?: No Do you have trouble taking care of your child, family member or friend?: No Do you have trouble with day-to-day activities such as bathing, preparing meals, shopping, managing finances, etc.?: No Are you currently unemployed and looking for a job?: I choose not to answer this question Are you interested in more education?: No Please select the resources that you would like help with: None Currently or been in a relationship where the following occur: No concerns reported THRIVE Score: 0 AUDIT C Alcohol Use Questionnaire (AUDIT-C) 1. How often do you have a drink containing alcohol?: Never 3. How often do you have six or more drinks on one occasion?: Never Total Score: 0 Score Reviewed/Action Taken: Yes ANURAG-7 AMB Questionnaire ANURAG-7 Date ANURAG - 7 assessed: 07/31/25 (declined) Source: Developed by Drs. Dany Odom, Ernesto Pantoja and colleagues, with an educational radha from [employer]. Review of Systems Const All systems reviewed & are unremarkable except as noted in HPI and below Physical exam (Primary Care) Vital Signs: Last Vital Signs Temp 98.5 F 07/31/25 13:06 Pulse 73 07/31/25 13:06 BP 118/80 07/31/25 13:06 Pulse Ox 98 07/31/25 13:06 Oxygen Delivery Method Room Air 07/31/25 13:06 BMI result Body Mass Index 29.2 Tobacco/Smoking Status: Tobacco use Status Tobacco use date assessed 06/18/25 07/31/25 13:14 Patient Tobacco Use Status Never used Tobacco 07/31/25 13:14 e-Cigarette/Vaping Use Never Used 07/31/25 13:14 PHQ-9: PHQ-9 Score PHQ-9: Total score 0 07/31/25 13:40 Depression Screening Interpretation: Negative Thrive Assessment: Date of Thrive Assessment Date Thrive assessed 12/10/24 07/31/25 13:14 Currently or been in a relationship where the following occur: No concerns reported Const Other: noted to be leaning towards the left when walking, 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 General: no acute distress and alert Nutritional Appearance: average body habitus HENMT Ears: external ears normal General nose exam: Normal external nose present Mouth: tongue normal, oropharynx normal, moist mucous membranes, no audible dysphonia, no drooling and other (Edentulous) Neck Neck: Yes full ROM and Yes no lymphadenopathy Thyroid: Thyroid normal Lymphatic: no lymphadenopathy noted Chest Chest palpation & inspection: normal inspection of the chest Resp Auscultation: clear to auscultation bilaterally Cardio Other: S1-S2 present regular rate and rhythm GI Palpation (GI): nontender, no guarding and no masses Auscultation: normal bowel sounds Back/Spine/Pelvis Thoracic/Lumbar Spine: kyphosis Neuro Other: Alert able to answer simple questions, ambulatory with positive kyphosis noted, noted to be slightly leaning towards the left when walking Extrem General: Yes full ROM, Yes no joint enlargement and Yes no pedal edema Coding Level of Care Code Est Pt Level 4 (91544) Diagnoses Gait instability R26.81 Choking episode R09.89 Additional Codes PHQ-9 - 65039 - PHQ-9 Billing: Yes ([id number]) Assessment & Plan Assessment & Plan (1) Gait instability: Code(s): R26.81 - Unsteadiness on feet Category: Medical Plan: Referred for physical therapy for evaluation of gait instability, see if a gait belt or a walker is indicated (2) Choking episode: Code(s): R09.89 - Other specified symptoms and signs involving the circulatory and respiratory systems Category: Medical Plan: Patient to be scheduled to be seen by a mobile Clinic for modified barium swallow testing, order signed and given back to caregiver Orders: Orders PT Evaluation and Treatment 07/31/25 R26.81 - Unsteadiness on feet
== END 2025-07-31 14:41 | disposition home or self-care (01) ==
LOC: HO.HMCC 12:54
PROVIDERS: PCP Internal Medicine; Visit Provider Internal Medicine
DX: R26.81 Unsteadiness on feet (principal); R09.89 Other specified symptoms and signs involving the circulatory and respiratory systems

== ENCOUNTER → 2025-07-31 12:53 | Outpatient (BNVA) | payer MEDICARE, MEDICAID, SELFPAY | PROVIDERS: PCP Internal Medicine; Visit Provider Internal Medicine | DX: Q99.2 Fragile X chromosome (principal); R13.10 Dysphagia, unspecified; R26.89 Other abnormalities of gait and mobility; R09.89 Other specified symptoms and signs involving the circulatory and respiratory systems | CPT/HCPCS: 96127; 99212 ==

== ENCOUNTER 2025-08-25 10:47 | Outpatient (AMB) | payer MEDICARE, MEDICAID, SELFPAY ==
[2025-08-25 12:32] VITALS: BP 118/74; PULSE 67; TEMP 36.7; O2SAT 97; BMI 28.9
--- NOTE | 2025-08-25 12:32 | A.OFFPC_ITS ---
Vital Signs 08/25/25 12:32 Height 5 ft 3 in Weight 163 lb BMI 28.9 BP 118/74 Blood Pressure Location Rt brachial Position Sitting Pulse 67 Pulse Source Pulse Oximeter Temp 98.0 F Temp Source Oral Pulse Oximetry (%) 97 Intake Visit Reasons: 6m follow up Allergies No Known Allergies Allergy (Verified 08/25/25 12:51) Medication List - Last Reconciled 08/25/25 by Adeline Farrar MD acetaminophen ER (Tylenol 8 Hour) 650 mg PO Q8H PRN calcium carbonate-vitamin D3 500 mg-10 mcg (400 unit) 1 tab PO QAM cholecalciferol (vitamin D3) 50 mcg PO QAM colloidal oatmeal 1% (Aveeno Moisturizing) Apply small amount to chest and abdomen 2 times a day; fenofibrate nanocrystallized 145 mg PO QAM finasteride 5 mg PO DAILY fluoxetine 20 mg PO DAILY levothyroxine 137 mcg PO QAM nystatin 1 appl topical DAILY PRN omeprazole 20 mg PO BEDTIME pediatric multivitamin no.42 (Children's Multivitamin chewable tablet) 1 tab PO QAM psyllium husk (Reguloid (psyllium husk)) 0.4 grams PO QAM risperidone 0.5 mg PO DAILY [transport chair As directed NS] [transport chair need with seatbelt , leg rests and foot rests ] Tobacco use date assessed: 06/18/25 Fall risk assessment: No Falls in past year Last assessed Fall Risk: 08/25/25 Dental Screening Dental Screen Date: 02/27/25 HPI 6m follow up HPI Details The patient is a 74-year-old male accompanied by caregiver, presenting for a follow-up visit . His past medical history is significant for Fragile X syndrome, hyperlipidemia, acquired hypothyroidism, gastroesophageal reflux disease (GERD), benign prostatic hyperplasia (BPH), obsessive-compulsive disorder (OCD), anxiety, and hearing difficulty. He already had his shingles vaccine and had a COVID infection in December, but has not received the most recent booster or his annual high-dose influenza vaccine. His last Cologuard test for colorectal cancer screening was negative in March of the previous year, and it is not due to be repeated until 2026. The patient has a history of falls and previously exhibited a tilt to one side while walking. His caregiver, who has been with him for six months, reports no falls during this period. A transport chair was prescribed on at least two prior occasions, but was reportedly never obtained by his caregivers. Has been feeling well with no new complaints at present time [facility] Medical History (Updated 08/31/25 @ 02:23 by Adeline Farrar MD) Normocytic normochromic anemia Gait instability Hypertrophic toenail Arthritis Hearing difficulty of both ears Vitamin D deficiency OCD (obsessive compulsive disorder) Anxiety Benign prostatic hyperplasia GERD (gastroesophageal reflux disease) Acquired hypothyroidism Fragile X syndrome Hypercholesterolemia Surgical History No history of previous surgery Family History Other Unknown family medical history Social History Household Members: Caregiver Housing: Assisted Living Facility Housing Other:: skilled nursing Are you a primary post anesthesia care unit nurse to a significant other at home: No Alcohol intake: never Patient Tobacco Use Status: Never used Tobacco e-Cigarette/Vaping Use: Never Used Second Hand Smoke Exposure: No service: No Current occupational status: disabled Current occupational exposures/hazards: No Cognitive needs: No Hearing needs: No Vision needs: No Questionnaire PHQ-9 Over the last 2 weeks, how often have you been bothered by any of the following problems? 1. Little interest or pleasure in doing things: not at all 2. Feeling down, depressed, or hopeless: not at all 3. Trouble falling or staying asleep, or sleeping too much: not at all 4. Feeling tired or having little energy: not at all 5. Poor appetite or overeating: not at all 6. Feeling bad about yourself - or that you are a failure or have let yourself or your family down: not at all 7. Trouble concentrating on things, such as reading the newspaper or watching television: not at all 8. Moving or speaking so slowly that other people could have noticed. Or the opposite - being so fidgety or restless that you have been moving around a lot more than usual: not at all 9. Thoughts that you would be better off or of hurting yourself in some way: not at all Total score: 0 Depression Screening Interpretation: Negative Depression Screening Done: Yes Source: Developed by Drs. Dany Odom, Ernesto Pantoja and colleagues, with an educational radha from [employer]. Thrive Questionnaire Date Thrive assessed: 12/10/24 I am a: Patient What is your living situation today?: I have a steady place to live Within the past 12 months, did the food you bought not last and you didn't have the money to get more?: I choose not to answer this question Within the past 12 months, did you worry whether your food would run out before you got money to buy more?: I choose not to answer this question Do you have trouble paying for medicines?: I choose not to answer this question Do you have trouble getting transportation to medical appointments?: No Do you have trouble paying your heating and electricity bill?: No Do you have trouble taking care of your child, family member or friend?: No Do you have trouble with day-to-day activities such as bathing, preparing meals, shopping, managing finances, etc.?: No Are you currently unemployed and looking for a job?: I choose not to answer this question Are you interested in more education?: No Please select the resources that you would like help with: None Currently or been in a relationship where the following occur: No concerns reported THRIVE Score: 0 AUDIT C Alcohol Use Questionnaire (AUDIT-C) 1. How often do you have a drink containing alcohol?: Never 3. How often do you have six or more drinks on one occasion?: Never Total Score: 0 ANURAG-7 AMB Questionnaire ANURAG-7 Date ANURAG - 7 assessed: 07/31/25 (declined) Source: Developed by Drs. Dany Odom, Ernesto Pantoja and colleagues, with an educational radha from [employer]. Review of Systems Const Reports as per HPI ENT Reports no additional complaints Card Reports no additional complaints and Denies dyspnea Resp Denies cough and Denies dyspnea GI Reports no additional complaints Musc Reports no additional complaints Skin/Breast Details: No rash or lesions Neuro Reports no additional complaints Psych Reports no additional complaints Endo Reports no additional complaints Vince/Lymph Denies easy bleeding Aller/Immun Reports no additional complaints Physical exam (Primary Care) Vital Signs: Last Vital Signs Temp 98.0 F 08/25/25 12:32 Pulse 67 08/25/25 12:32 BP 118/74 08/25/25 12:32 Pulse Ox 97 08/25/25 12:32 BMI result Body Mass Index 28.9 Tobacco/Smoking Status: Tobacco use Status Tobacco use date assessed 06/18/25 08/25/25 12:33 Patient Tobacco Use Status Never used Tobacco 08/25/25 12:33 e-Cigarette/Vaping Use Never Used 08/25/25 12:33 PHQ-9: PHQ-9 Score PHQ-9: Total score 0 08/25/25 13:07 Depression Screening Interpretation: Negative Thrive Assessment: Date of Thrive Assessment Date Thrive assessed 12/10/24 08/25/25 12:33 Currently or been in a relationship where the following occur: No concerns reported Const General: no acute distress and alert Nutritional Appearance: average body habitus HENMT Ears: external ears normal General nose exam: Normal external nose present Mouth: moist mucous membranes, no drooling and other (Edentulous) Neck Neck: Yes full ROM and Yes no lymphadenopathy Resp Auscultation: clear to auscultation bilaterally Cardio Other: S1-S2 present regular rate and rhythm GI Palpation (GI): nontender, no guarding and no masses Auscultation: normal bowel sounds Back/Spine/Pelvis Thoracic/Lumbar Spine: kyphosis Neuro Other: Alert able to answer simple questions, ambulatory with positive kyphosis noted, slow gait Extrem General: Yes full ROM, Yes no joint enlargement and Yes no pedal edema Coding Level of Care Code Est Pt Level 4 (63670) Complex EM visit Add On G2211 Diagnoses Hypercholesterolemia E78.00 Acquired hypothyroidism E03.9 Normocytic normochromic anemia D64.9 Gait instability R26.81 Assessment & Plan Assessment & Plan (1) Hypercholesterolemia: Code(s): E78.00 - Pure hypercholesterolemia, unspecified Category: Medical Plan: Advised to get fasting lipid levels checked. Continued on fenofibrate 145 mg daily (2) Acquired hypothyroidism: Code(s): E03.9 - Hypothyroidism, unspecified Category: Medical Plan: Repeat TSH and free T4 ordered. Currently on levothyroxine 137 mcg daily in the morning (3) Normocytic normochromic anemia: Code(s): D64.9 - Anemia, unspecified Category: Medical Plan: Will check iron levels (4) Gait instability: Code(s): R26.81 - Unsteadiness on feet Category: Medical Plan: Another prescription for transport chair printed and given to caregiver. Have not received yet previous order for transport showed Medications: Refilled [transport chair] need with seatbelt , leg rests and foot rests 1 ea 0RF gait instability M19.90 - Unspecified osteoarthritis, unspecified site, Q99.2 - Fragile X chromosome, R26.81 - Unsteadiness on feet
== END 2025-08-25 13:32 | disposition home or self-care (01) ==
LOC: HO.HMCC 10:48
PROVIDERS: PCP Internal Medicine; Visit Provider Internal Medicine
DX: E78.00 Pure hypercholesterolemia, unspecified (principal); E03.9 Hypothyroidism, unspecified; D64.9 Anemia, unspecified; R26.81 Unsteadiness on feet

== ENCOUNTER → 2025-08-25 10:47 | Outpatient (BNVA) | payer MEDICARE, MEDICAID, SELFPAY | PROVIDERS: PCP Internal Medicine; Visit Provider Internal Medicine | DX: E78.00 Pure hypercholesterolemia, unspecified (principal); E03.9 Hypothyroidism, unspecified; D64.9 Anemia, unspecified; R26.81 Unsteadiness on feet | CPT/HCPCS: 99212 ==

== ENCOUNTER 2025-08-28 08:08 | Outpatient (REF) | payer MEDICARE, MEDICAID, SELFPAY ==
[2025-08-28 10:50] LABS: Cholesterol 133 mg/dL (<200); HDL Cholesterol 33 mg/dL (>40); Iron 101 mcg/dL (45-160); Percent Iron Saturation 30 % (15-50); Total Iron Binding Capacity 340 mcg/dL (228-428); Triglycerides 70 mg/dL (<150); Unsaturated Iron Binding 239 ug/dL
[2025-08-28 11:09] LABS: Free T4 (Free Thyroxine) 1.30 ng/dL (0.71-1.85); Thyroid Stimulating Hormone 0.11 uIU/mL (0.32-4.0)
== END 2025-08-28 08:09 | disposition home or self-care (01) ==
LOC: HO.HMGCLDS 08:08
PROVIDERS: PCP Internal Medicine; Visit Provider Internal Medicine
DX: E78.00 Pure hypercholesterolemia, unspecified (principal); E03.9 Hypothyroidism, unspecified; D64.9 Anemia, unspecified
CPT/HCPCS: 36415; 80061; 83540; 84439; 84443; 85025